=== PATIENT | male | born 1980 | race Caucasian/White ===

== ENCOUNTER 2017-08-09 06:27 | Emergency (ER) | payer OTHER, SELFPAY ==
[2017-08-09 06:31] VITALS: BP 132/93; PULSE 75; RESP 16; TEMP 36.6; O2SAT 99; BMI 32.6
[2017-08-09 06:57] LABS: Basophils % 0.4 % (0.1-2.0); Eosinophils # 0.3 K/mm3 (0.0-0.4); Eosinophils % 2.8 % (0.1-12.0); Hematocrit 49.2 % (42.0-52.0); Hemoglobin 16.6 g/dL (14.1-18.0); Lymphocytes # 2.4 K/mm3 (0.7-4.5); Lymphocytes % 26.6 K/mm3 (10-50); Mean Corpuscular HGB Conc 33.8 g/dL (31.8-35.4); Mean Corpuscular Hemoglobin 31.6 pg (27.0-31.2); Mean Corpuscular Volume 93.7 fl (80-94); Mean Platelet Volume 7.1 fl (7.4-10.4); Monocytes # 0.6 K/mm3 (0.1-1.0); Monocytes % 6.8 % (1.7-9.3); Neutrophils # 5.8 K/mm3 (1.8-7.8); Neutrophils % 63.4 % (37.0-80.0); Platelet Count 316 K/mm3 (142-424); Red Blood Count 5.25 M/mm3 (4.60-6.20); Red Cell Distribution Width 12.5 % (11.5-17.5); White Blood Count 9.1 K/mm3 (4.8-10.8)
[2017-08-09 07:00] LABS: Microscopic, Urine URINE MICROSCOPIC (MICROSCOPIC)
--- NOTE | 2017-08-09 07:10 | HMH.EDNVD ---
ED Disposition Clinical Impression: Gastroenteritis Disposition: Home, Self-Care Condition on Discharge: Good Instructions: DI for Diarrhea and Traveler's Diarrhea -- Adult Additional Instructions: fluids and see pcp for follow up Prescriptions: Ondansetron HCl [Zofran 4mg Tab] 4 mg PO TID #15 tab Referrals: Thom Harp [Primary Care Provider] - - Critical Care Critical Care Time: No Attestation: On 08/09/17, the high probability of a clinically significant, sudden or life threatening deterioration of the following system(s) required my full and direct attention, intervention and personal management. The time I documented below is in addition to time spent performing reported procedures but includes the following listed in this critical care notation. Medical Decision Making - Medical Records Medical records reviewed: Yes: I reviewed the patient's medical records. Vital Signs: 08/09/17 06:31 Temperature 97.9 F Temperature Source Oral Pulse Rate [Right Brachial] 75 Respiratory Rate 16 Blood Pressure [Right Arm] 132/93 Blood Pressure Mean [Right Arm] 106 Blood Pressure Source [Right Arm] Automatic Cuff Blood Pressure Position [Right Arm] Sitting 02 Sat by Pulse Oximetry 99 Oxygen Delivery Method Room Air - Lab Data Lab results reviewed: Yes: I reviewed the patient's lab results. Lab Results 08/09/17 06:45: WBC 9.1, RBC 5.25, Hgb 16.6, Hct 49.2, MCV 93.7, MCH 31.6 H, MCHC 33.8, RDW 12.5, Plt Count 316, MPV 7.1 L, Neut % (Auto) 63.4, Lymph % (Auto) 26.6, [place] % (Auto) 6.8, Eos % (Auto) 2.8, Baso % (Auto) 0.4, Neut # (Auto) 5.8, Lymph # (Auto) 2.4, [place] # (Auto) 0.6, Eos # (Auto) 0.3, Baso # (Auto) 0.0 08/09/17 06:45: Sodium 138, Potassium 4.0, Chloride 103, Carbon Dioxide 23, Anion Gap 16.0 H, BUN 18, Creatinine 1.01, Estimated Creat Clear 135, Estimated GFR 82, Est GFR ( Amer) 100, Glucose 122 H, Calcium 9.0, Total Bilirubin 0.4, AST 16, ALT 45, Alkaline Phosphatase 58, Total Protein 8.2, Albumin 4.2, Globulin 4.0 H, Albumin/Globulin Ratio 1.1, Amylase 35, Lipase 141 08/09/17 06:45: Influenza Type A Ag Negative, Influenza Type B Ag Negative 08/09/17 06:55: Urine Color Yellow, Urine Appearance Clear, Urine pH 6.0, Ur Specific [place] 1.025, Urine Protein Negative, Urine Glucose (UA) Negative, Urine Ketones Negative, Urine Blood Trace-i, Urine Nitrate Negative, Urine Bilirubin Negative, Urine Urobilinogen 0.2, Ur Leukocyte Esterase Negative, Urine RBC Occasional, Urine WBC None, Ur Squamous Epith Cells 3-5, Urine Bacteria 1+ Result diagrams: 08/09/17 06:45 08/09/17 06:45 Orders (Tests/Meds): ED MEDICATIONS Discontinued Medications Generic Name Dose Route Start Last Admin Trade Name Freq PRN Reason Stop Dose Admin Sodium Chloride 1,000 mls @ 999 mls/hr 08/09/17 07:00 08/09/17 06:56 Sod Chlor 0.9% 1000ml Bag IV 08/09/17 08:00 999 mls/hr .Q1H1M RAY Administration Ondansetron HCl 4 mg 08/09/17 06:53 08/09/17 06:55 Zofran 4mg/2ml Vial IV 08/09/17 06:54 4 mg ONCE ONE Administration - Jaison Inquiry Pt receiving controlled substance: No Nausea/Vomiting/Diarrhea HPI - General Chief complaint: Nausea/Vomiting/Diarrhea Stated complaint: Diarrhea,chills,vomiting Time Seen by Provider: 08/09/17 07:10 Mode of Arrival: Ambulatory Source of Information: Patient, Medical Record Limitations: No Limitations Description of Symptoms (Recalled from ER Triage Doc. by RN): N/V/D SINCE YESTERDAY - History of Present Illness HPI Narrative: achey with n/v with diarrhea and no rash over the last 24 hrs MD complaint: nausea, vomiting, diarrhea Onset (ago): day(s) Associated Abdominal Pain: No Severity: moderate Associated symptoms: myalgias - Related Data Previous Rx's Medication Instructions Recorded Ondansetron HCl [Zofran 4mg Tab] 4 mg PO TID #15 tab 08/09/17 Allergies Allergy/AdvReac Type Severity Reaction Status Date / Time erythromycin base Al
[2017-08-09 07:16] LABS: Appearance,Urine CLEAR (Clear); Bilirubin,Urine Negative (Negative); Blood, Urine TRACE-I (Negative); Color,Urine YELLOW (Yellow); Glucose,Urine (UA) Negative (Negative); Ketones,Urine Negative (Negative); Leukocyte Esterase,Urine Negative (Negative); Nitrate,Urine Negative (Negative); Protein,Urine Negative (Negative); Specific Gravity, Urine 1.025 (1.005-1.030); Urobilinogen,Urine 0.2 EU/dl (0.2)
--- NOTE | 2017-08-09 07:17 | ED_ITS ---
ED Disposition Clinical Impression: Gastroenteritis Disposition: Home, Self-Care Condition on Discharge: Good Instructions: DI for Diarrhea and Traveler's Diarrhea -- Adult Additional Instructions: fluids and see pcp for follow up Prescriptions: Ondansetron HCl [Zofran 4mg Tab] 4 mg PO TID #15 tab Referrals: Thom Harp [Primary Care Provider] - - Critical Care Critical Care Time: No Attestation: On 08/09/17, the high probability of a clinically significant, sudden or life threatening deterioration of the following system(s) required my full and direct attention, intervention and personal management. The time I documented below is in addition to time spent performing reported procedures but includes the following listed in this critical care notation. Medical Decision Making - Medical Records Medical records reviewed: Yes: I reviewed the patient's medical records. Vital Signs: 08/09/17 06:31 Temperature 97.9 F Temperature Source Oral Pulse Rate [Right Brachial] 75 Respiratory Rate 16 Blood Pressure [Right Arm] 132/93 Blood Pressure Mean [Right Arm] 106 Blood Pressure Source [Right Arm] Automatic Cuff Blood Pressure Position [Right Arm] Sitting 02 Sat by Pulse Oximetry 99 Oxygen Delivery Method Room Air - Lab Data Lab results reviewed: Yes: I reviewed the patient's lab results. Lab Results 08/09/17 06:45: WBC 9.1, RBC 5.25, Hgb 16.6, Hct 49.2, MCV 93.7, MCH 31.6 H, MCHC 33.8, RDW 12.5, Plt Count 316, MPV 7.1 L, Neut % (Auto) 63.4, Lymph % (Auto ) 26.6, [place] % (Auto) 6.8, Eos % (Auto) 2.8, Baso % (Auto) 0.4, Neut # (Auto) 5.8, Lymph # (Auto) 2.4, [place] # (Auto) 0.6, Eos # (Auto) 0.3, Baso # (Auto) 0.0 08/09/17 06:45: Sodium 138, Potassium 4.0, Chloride 103, Carbon Dioxide 23, Anion Gap 16.0 H, BUN 18, Creatinine 1.01, Estimated Creat Clear 135, Estimated GFR 82, Est GFR ( Amer) 100, Glucose 122 H, Calcium 9.0, Total Bilirubin 0.4, AST 16, ALT 45, Alkaline Phosphatase 58, Total Protein 8.2, Albumin 4.2, Globulin 4.0 H, Albumin/Globulin Ratio 1.1, Amylase 35, Lipase 141 08/09/17 06:45: Influenza Type A Ag Negative, Influenza Type B Ag Negative 08/09/17 06:55: Urine Color Yellow, Urine Appearance Clear, Urine pH 6.0, Ur Specific [place] 1.025, Urine Protein Negative, Urine Glucose (UA) Negative, Urine Ketones Negative, Urine Blood Trace-i, Urine Nitrate Negative, Urine Bilirubin Negative, Urine Urobilinogen 0.2, Ur Leukocyte Esterase Negative, Urine RBC Occasional, Urine WBC None, Ur Squamous Epith Cells 3-5, Urine Bacteria 1+ Result diagrams: 08/09/17 06:45 08/09/17 06:45 Orders (Tests/Meds): ED MEDICATIONS Discontinued Medications Generic Name Dose Route Start Last Admin Trade Name Freq PRN Reason Stop Dose Admin Sodium Chloride 1,000 mls @ 999 mls/hr 08/09/17 07:00 08/09/17 06:56 Sod Chlor 0.9% 1000ml Bag IV 08/09/17 08:00 999 mls/hr .Q1H1M RAY Administration Ondansetron HCl 4 mg 08/09/17 06:53 08/09/17 06:55 Zofran 4mg/2ml Vial IV 08/09/17 06:54 4 mg ONCE ONE Administration - Jaison Inquiry Pt receiving controlled substance: No Nausea/Vomiting/Diarrhea HPI - General Chief complaint: Nausea/Vomiting/Diarrhea Stated complaint: Diarrhea,chills,vomiting Time Seen by Provider: 08/09/17 07:10 Mode of Arrival: Ambulatory Source of Information: Patient, Medical Record Limitations: No Limitations
[2017-08-09 07:19] LABS: Alanine Aminotransferase 45 U/L (12-78); Albumin Level 4.2 gm/dL (3.4-5.0); Albumin/Globulin Ratio 1.1 (1.1-1.8); Alkaline Phosphatase 58 U/L (46-116); Amylase 35 U/L (25-125); Aspartate Amino Transferase 16 U/L (15-37); Bilirubin,Total 0.4 mg/dL (0.2-1.0); Blood Urea Nitrogen 18 mg/dL (7-18); Carbon Dioxide 23 mmol/L (21.0-32.0); Chloride 103 mmol/L (98-107); Creatinine Clearance Estimated 135 mL/min (0-300); Creatinine,Serum 1.01 mg/dL (0.70-1.30); Estimated Glomerular Filt Rate 82 ml/min (>60); GFR (African American) 100 ML/MIN (>60); Glucose 122 mg/dL (74-106); Lipase 141 u/L (73-393); Sodium 138 mmol/L (136-145); Total Protein,Serum 8.2 gm/dL (6.4-8.2)
--- NOTE | 2017-08-09 07:32 | PC.NURSE ---
Report given to VIVIANA Smith at this time
[2017-08-09 07:51] LABS: Bacteria,Urine 1+ /lpf; RBC,Urine Occasional #/hpf (0-3)
[2017-08-09 09:32] VITALS: BP 141/92; PULSE 68; RESP 18; TEMP 36.8; O2SAT 97
== END 2017-08-09 09:40 | disposition home or self-care (01) ==
PROVIDERS: Emergency Provider Emergency Medicine; Family Provider Pediatrics; PCP Pediatrics
DX: K52.9 Noninfective gastroenteritis and colitis, unspecified (principal); F17.210 Nicotine dependence, cigarettes, uncomplicated; Z88.1 Allergy status to other antibiotic agents
CPT/HCPCS: 36415; 80053; 81001; 82150; 83690; 85025; 87275; 87276; 96365; 96367; 96374; 96375; 99282; J2405

== ENCOUNTER 2018-12-05 19:55 | Emergency (ER) | payer OTHER, SELFPAY ==
[2018-12-05 20:08] VITALS: BP 137/92; PULSE 82; RESP 18; TEMP 37.2; O2SAT 98; BMI 31.1
--- NOTE | 2018-12-05 20:29 | HMH.EDUTC ---
[facility] [place]: Abscess Cellulitis Qualifiers: Site of cellulitis: extremity Site of cellulitis of extremity: lower extremity Laterality: left Qualified Code(s): L03.116 - Cellulitis of left lower limb Disposition: Home, Self-Care Condition on Discharge: Good Instructions: DI for Cellulitis -- Adult, Cellulitis, Cephalexin, Mupirocin, DI for Skin Abscess Additional Instructions: *Start antibiotic(s) immediately and be sure to take as ordered for the FULL length of time although you may be feeling better or start to see improvement in the next 24-48 hours *Monitor closely. Outlined redness so that you can monitor easier. Follow up immediately for new or worsening symptoms including but not limited to redness, swelling, streaking from site fever or chills. *Warm compress 15 minutes 3-4 times day *Never squeeze or pop these on your own. Seek immediate medical attention next time this occurs *Monitor Temp. Tylenol every 4 hours as needed and ibuprofen every 6 hours as needed (as long as your primary care doctor has told you that it is ok to take both. For fever, aches, pain. ER if no less that 101 despite Tylenol and ibuprofen Follow up with your family doctor/primary care physician in the next 48-72 hours if no improvement to make sure that medication is working Return if needed Prescriptions: Sulfamethoxazole/Trimethoprim [Bactrim DS tablet] 1 each PO BID 10 Days #20 tab cephALEXin [Keflex 500mg Cap] 500 mg PO Q6H 10 Days #40 cap Referrals: Thom Harp [Primary Care Provider] - As needed Forms: Work/School Release Time of Disposition: 20:38 Medical Decision Making - Jaison Inquiry Pt receiving controlled substance: No Jaison was queried for this patient: No Vital Signs: 12/05/18 20:08 Temperature 98.9 F Temperature Source Oral Pulse Rate [Right Radial] 82 Respiratory Rate 18 Blood Pressure [Right Arm] 137/92 H Blood Pressure Mean [Right Arm] 107 Blood Pressure Source [Right Arm] Automatic Cuff Blood Pressure Position [Right Arm] Sitting 02 Sat by Pulse Oximetry 98 Oxygen Delivery Method Room Air [facility] [place] - General Stated complaint: Spot on left leg Time Seen by Provider: 12/05/18 20:15 Mode of Arrival: Ambulatory Source of Information: Patient Limitations: No Limitations Description of Symptoms (Recalled from Triage Doc. by RN): C/O RED, WARM AREA ON HIS LT THIGH HEENT Symptoms (Recalled from RN notes): No Resp Symptoms (Recalled from RN notes): No Skin Symptoms (Recalled from RN notes): Yes (RED, WARM AREA ON LT THIGH) MS Symptoms (Recalled from RN notes): No Functional Status (Recalled from RN notes): N/A - History of Present Illness Provider Complaint: Patient states that he noticed a red area on his left thigh area about 2 days ago State that it has continued to get worse State that he soaked last night in the tub and one of the areas appeared to open but didn't drain State that today he noticed that the redness around the raised red spot was getting bigger and someone told him that he may have cellulitis - Related Data Previous Rx's Medication Instructions Recorded Sulfamethoxazole/Trimethoprim 1 each PO BID 10 Days #20 tab 12/05/18 [Bactrim DS tablet] cephALEXin [Keflex 500mg Cap] 500 mg PO Q6H 10 Days #40 cap 12/05/18 Allergies Allergy/AdvReac Type Severity Reaction Status Date / Time erythromycin base Allergy Unknown Verified 08/09/17 06:36 [ERYTHROMYCIN BASE] - Worker's Comp Is this a Worker's Comp case?: No [facility] History - Hepatitis A Screen Drug use history?: No High risk sexual behaviors?: No History of sexually transmitted infection?: No Currently employed?: No Childcare worker?: No Do you have indoor plumbing?: Yes Do you have electricity?: Yes Attestation statement:: This patient has been screened for Hepatitis A risk factors. I have reviewed the patient's past medical history: Yes - Social History Smoking Status: Current e
--- NOTE | 2018-12-05 20:37 | ED_ITS ---
[facility] [place] Clinical Impression: Abscess Cellulitis Qualifiers: Site of cellulitis: extremity Site of cellulitis of extremity: lower extremity Laterality: left Qualified Code(s): L03.116 - Cellulitis of left lower limb Disposition: Home, Self-Care Condition on Discharge: Good Instructions: DI for Cellulitis -- Adult, Cellulitis, Cephalexin, Mupirocin, DI for Skin Abscess Additional Instructions: *Start antibiotic(s) immediately and be sure to take as ordered for the FULL length of time although you may be feeling better or start to see improvement in the next 24-48 hours *Monitor closely. Outlined redness so that you can monitor easier. Follow up immediately for new or worsening symptoms including but not limited to redness, swelling, streaking from site fever or chills. *Warm compress 15 minutes 3-4 times day *Never squeeze or pop these on your own. Seek immediate medical attention next time this occurs *Monitor Temp. Tylenol every 4 hours as needed and ibuprofen every 6 hours as needed (as long as your primary care doctor has told you that it is ok to take both. For fever, aches, pain. ER if no less that 101 despite Tylenol and ibuprofen Follow up with your family doctor/primary care physician in the next 48-72 hours if no improvement to make sure that medication is working Return if needed Prescriptions: Sulfamethoxazole/Trimethoprim [Bactrim DS tablet] 1 each PO BID 10 Days #20 tab cephALEXin [Keflex 500mg Cap] 500 mg PO Q6H 10 Days #40 cap Referrals: Thom Harp [Primary Care Provider] - As needed Forms: Work/School Release Time of Disposition: 20:38 Medical Decision Making - Jaison Inquiry Pt receiving controlled substance: No Jaison was queried for this patient: No Vital Signs: 12/05/18 20:08 Temperature 98.9 F Temperature Source Oral Pulse Rate [Right Radial] 82 Respiratory Rate 18 Blood Pressure [Right Arm] 137/92 H Blood Pressure Mean [Right Arm] 107 Blood Pressure Source [Right Arm] Automatic Cuff Blood Pressure Position [Right Arm] Sitting 02 Sat by Pulse Oximetry 98 Oxygen Delivery Method Room Air [facility] [place] - General Stated complaint: Spot on left leg Time Seen by Provider: 12/05/18 20:15 Mode of Arrival: Ambulatory Source of Information: Patient Limitations: No Limitations Description of Symptoms (Recalled from Triage Doc. by RN): C/O RED, WARM AREA ON HIS LT THIGH HEENT Symptoms (Recalled from RN notes): No Resp Symptoms (Recalled from RN notes): No Skin Symptoms (Recalled from RN notes): Yes (RED, WARM AREA ON LT THIGH) MS Symptoms (Recalled from RN notes): No Functional Status (Recalled from RN notes): N/A - History of Present Illness Provider Complaint: Patient states that he noticed a red area on his left thigh area about 2 days ago State that it has continued to get worse State that he soaked last night in the tub and one of the areas appeared to open but didn't drain State that today he noticed that the redness around the raised red spot was getting bigger and someone told him that he may have cellulitis - Related Data Previous Rx's Medication Instructions Recorded Sulfamethoxazole/Trimethoprim 1 each PO BID 10 Days #20 tab 12/05/18 [Bactrim DS tablet] cephALEXin [Keflex 500mg Cap] 500 mg PO Q6H 10 Days #40 cap 12/05/18 Allergies Allergy/AdvReac Ty
[2018-12-05 20:41] VITALS: BP 137/92; PULSE 82; RESP 18; TEMP 37.2; O2SAT 98
== END 2018-12-05 20:42 | disposition home or self-care (01) ==
PROVIDERS: Emergency Provider Nurse Practitioner; PCP Pediatrics
DX: L03.116 Cellulitis of left lower limb (principal); F17.210 Nicotine dependence, cigarettes, uncomplicated
CPT/HCPCS: 99201

== ENCOUNTER 2021-07-28 08:15 | Emergency (ER) | payer OTHER, SELFPAY ==
--- NOTE | 2021-07-28 08:09 | ECG_ITS ---
APPROVED REPORT Exam: Resting ECG HR:70 bpm ECG Measurements Heart Rate 70 AXES SD 150 P 37 QRSd 89 QRS 133 QT 367 T 17 QTc 388 Conclusion SINUS RHYTHM RIGHT VENTRICULAR HYPERTROPHY [SOME/ALL OF: PROMINENT R IN V1, LATE TRANSITION, RAD, MONSE, SSS] ABNORMAL ECG UNCONFIRMED REPORT Electronically signed by : Kyle Alfaro MD 07/29/2021 19:01:29
[2021-07-28 08:16] VITALS: PULSE 74; RESP 20; TEMP 36.4; O2SAT 100; BMI 72.5
[2021-07-28 08:32] VITALS: BP 116/83; BP 126/89; PULSE 59; PULSE 61; RESP 18; O2SAT 95; O2SAT 97
--- NOTE | 2021-07-28 08:32 | XR_ITS ---
FINAL REPORT CLINICAL HISTORY: chest pain, smoker COMPARISON: 12/21/2017 FINDINGS: The heart size is normal. The mediastinum is within normal limits. There is no acute cardiopulmonary process. There is no pleural effusion. There is no pneumothorax. The bony thorax is intact. IMPRESSION: No acute cardiopulmonary process. Reviewed, Interpreted and Dictated by Neptali Flores III, MD Transcribed by Ge Soria Authenticated by Neptali Flores III, MD on 07/28/2021 09:20:26 AM [facility]
[2021-07-28 08:45] LABS: Basophils # 0.2 K/mm3 (0-0.2); Basophils % 1.7 % (0.1-2.0); Eosinophils # 0.3 K/mm3 (0.0-0.4); Eosinophils % 2.4 % (0.1-12.0); Hematocrit 55.6 % (42.0-52.0); Lymphocytes # 2.5 K/mm3 (0.7-4.5); Lymphocytes % 23.9 % (10-50); Mean Corpuscular HGB Conc 32.6 g/dL (31.8-35.4); Mean Corpuscular Hemoglobin 32.7 pg (27.0-31.2); Mean Corpuscular Volume 100.4 fl (80-94); Mean Platelet Volume 7.6 fl (7.4-10.4); Monocytes # 0.5 K/mm3 (0.1-1.0); Monocytes % 5.2 % (1.7-9.3); Neutrophils % 66.8 % (37.0-80.0); Platelet Count 355 K/mm3 (142-424); Red Blood Count 5.53 M/mm3 (4.60-6.20); Red Cell Distribution Width 13.2 % (11.5-17.5); White Blood Count 10.4 K/mm3 (4.8-10.8)
--- NOTE | 2021-07-28 08:45 | HMH.EDGENADL ---
ED Disposition Clinical Impression: Atypical chest pain Disposition: Home, Self-Care Condition on Discharge: Good Instructions: DI for Atypical Chest Pain Additional Instructions: follow up Dr Barnhart call for appt, return for worse Referrals: Zamzam Parker [Primary Care Provider] - - Critical Care Critical Care Time: No Attestation: On 07/28/21, the high probability of a clinically significant, sudden or life threatening deterioration of the following system(s) required my full and direct attention, intervention and personal management. The time I documented below is in addition to time spent performing reported procedures but includes the following listed in this critical care notation. Medical Decision Making - Medical Records Medical records reviewed: Yes: I reviewed the patient's medical records. - Jaison Inquiry Pt receiving controlled substance: No Vital Signs: 07/28/21 08:16 07/28/21 08:32 07/28/21 09:00 Temperature 97.5 F L Temperature Source Oral Pulse Rate 59 L 61 Pulse Rate [Right] 74 Respiratory Rate 20 18 18 Blood Pressure 126/89 132/81 Blood Pressure Mean 87 Blood Pressure Source Automatic Cuff Blood Pressure Source [140/93] Manual Cuff/ Doppler Blood Pressure Position Sitting Blood Pressure Position [140/93] Supine 02 Sat by Pulse Oximetry 100 97 96 Oxygen Delivery Method Room Air Room Air - Lab Data Lab Results 07/28/21 08:17: WBC 10.4, RBC 5.53, Hgb 18.1 H, Hct 55.6 H, MCV 100.4 H, MCH 32.7 H, MCHC 32.6, RDW 13.2, Plt Count 355, MPV 7.6, Neut % (Auto) 66.8, Lymph % (Auto) 23.9, [place] % (Auto) 5.2, Eos % (Auto) 2.4, Baso % (Auto) 1.7, Neut # (Auto) 7.0, Lymph # (Auto) 2.5, [place] # (Auto) 0.5, Eos # (Auto) 0.3, Baso # (Auto) 0.2 07/28/21 08:17: Sodium 136, Potassium 4.7, Chloride 102, Carbon Dioxide 26, Anion Gap 12.7, BUN 15, Creatinine 0.90, Estimated Creat Clear 99, Estimated GFR 92, Est GFR ( Amer) 111, Glucose 106 H, Calcium 9.7, Total Bilirubin 0.6, AST 33, ALT 26, Alkaline Phosphatase 56, Troponin I < 0.01, Total Protein 8.6 H, Albumin 4.9, Globulin 3.7 H, Albumin/Globulin Ratio 1.3 07/28/21 10:47: Troponin I < 0.01 Result diagrams: 07/28/21 08:17 07/28/21 08:17 Orders (Tests/Meds): ED MEDICATIONS Generic Name Dose Route Start Last Admin Trade Name Freq PRN Reason Stop Dose Admin Sodium Chloride 10 ml 07/28/21 08:32 Sodium Chloride 0.9% 10ml Flush Syringe IV 08/27/21 08:31 NEEDED PRN Maintain IV Site Discontinued Medications Generic Name Dose Route Start Last Admin Trade Name Freq PRN Reason Stop Dose Admin Aspirin 324 mg 07/28/21 08:36 07/28/21 08:42 Aspirin 81mg Chewable Tablet PO 07/28/21 08:37 324 mg ONCE ONE Administration Ketorolac Tromethamine 30 mg 07/28/21 09:28 07/28/21 09:33 Ketorolac 30mg/Ml Vial IV 07/28/21 09:29 30 mg ONCE ONE Administration ORDERS Category Date Time Status Troponin I Q3H Lab 07/28/21 11:45 Ordered Troponin I Stat Lab 07/28/21 10:47 Ordered Medical Decision Narrative: ekg by me nsr, narrow qrs, no st elev reeval vss appears well feels betetr, ok with plan to f/u cardiology General Adult HPI - General Chief complaint: Chest Pain Stated complaint: chest pain Time Seen by Provider: 07/28/21 08:45 Mode of Arrival: Ambulatory Limitations: No Limitations Description of Symptoms (Recalled from ER Triage Doc. by RN): pt presents to ED c/o pain that started yesterday. pt states that he is currently under a lot of stress. 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
[2021-07-28 08:50] LABS: Chloride 102 mmol/L (98-107); Sodium 136 mmol/L (136-145)
[2021-07-28 08:51] LABS: Potassium 4.7 mmoL/L (3.5-5.1)
[2021-07-28 08:53] LABS: Alanine Aminotransferase 26 U/L (12-78); Alkaline Phosphatase 56 U/L (38-126); Aspartate Amino Transferase 33 U/L (17-59); Bilirubin,Total 0.6 mg/dl (0.2-1.3); Blood Urea Nitrogen 15 mg/dl (9-20); Creatinine Clearance Estimated 99 mL/min (50-200); Estimated Glomerular Filt Rate 92 ml/min (>60); GFR (African American) 111 ML/MIN (>60)
[2021-07-28 08:54] LABS: Albumin Level 4.9 g/dl (3.5-5.0); Albumin/Globulin Ratio 1.3 (1.1-1.8); Anion Gap 12.7 mEq/L (5-15); Calcium 9.7 mg/dl (8.4-10.2); Carbon Dioxide 26 mmol/L (22.0-30.0); Globulin 3.7 g/dL (1.3-3.2); Glucose 106 mg/dl (74-100); Total Protein,Serum 8.6 g/dl (6.3-8.2)
[2021-07-28 09:00] VITALS: BP 132/81; PULSE 61; RESP 18; O2SAT 96
[2021-07-28 09:10] LABS: Troponin I < 0.01 ng/ml (0.00-0.034)
--- NOTE | 2021-07-28 09:33 | PC.NURSE ---
DR EDGE WANTS 2 HR [facility] NOTFIED
[2021-07-28 10:00] LABS: Hemoglobin 18.1 g/dL (14.1-18.0)
[2021-07-28 11:32] LABS: Troponin I < 0.01 ng/ml (0.00-0.034)
[2021-07-28 12:27] VITALS: BP 117/82; PULSE 66; RESP 16; TEMP 36.6; O2SAT 98
== END 2021-07-28 12:30 | disposition home or self-care (01) ==
PROVIDERS: Emergency Provider Emergency Medicine; PCP Internal Medicine Rheumatology
DX: R07.89 Other chest pain (principal); F17.210 Nicotine dependence, cigarettes, uncomplicated
CPT/HCPCS: 36415; 71045; 80053; 84484; 85025; 93005; 96375; 99284

== ENCOUNTER 2021-10-13 09:01 | Emergency (ER) | payer OTHER, SELFPAY ==
--- NOTE | 2021-10-13 09:05 | XR_ITS ---
FINAL REPORT CLINICAL HISTORY: pain that radiates into neck and down Rt arm for 1 day FINDINGS: 2 views of the right clavicle were obtained. There is no acute fracture. The joint spaces are intact. There is no soft tissue abnormality. IMPRESSION: No acute process. Reviewed, Interpreted and Dictated by Tommy Jimenez MD Transcribed by Ge Soria Authenticated by Tommy Jimenez MD on 10/13/2021 09:40:44 AM [facility]
[2021-10-13 09:30] VITALS: BP 169/111; PULSE 68; RESP 18; TEMP 37; O2SAT 99; BMI 31.9
--- NOTE | 2021-10-13 10:18 | HMH.EDUTC ---
[facility] [place] Disposition Clinical Impression: Separation of muscle (nontraumatic), right shoulder Right shoulder pain Qualifiers: Chronicity: acute Qualified Code(s): M25.511 - Pain in right shoulder Disposition: Home, Self-Care Condition on Discharge: Good Additional Instructions: Rest the extremity, apply ice for 15 minutes as tolerated three or four times per day, Wear the arm sling to rest your shoulder for the next 3 days. Take ibuprofen for pain. I sent in a prescription to your pharmacy. Follow up with Dr. Arreola (orthopedics). I put in a referral but you need to call his office and schedule an appointment. Follow up with your regular doctor. GO TO THE ER FOR ANY WORSENING SYMPTOMS Don't lift over 10 pounds with your right arm for the next 7 days. Prescriptions: Ibuprofen [Ibuprofen 800mg Tablet] 800 mg PO Q8HP PRN #30 tab PRN Reason: Moderate Pain Transmission Status: Received by [facility] Referrals: Thom Harp [Primary Care Provider] - Lewis Arreola MD [Staff Physician] - Forms: Work/School Release Time of Disposition: 10:22 Medical Decision Making - Medical Records Medical records reviewed: No: I reviewed the patient's medical records. - Jaison Inquiry Pt receiving controlled substance: No Vital Signs: 10/13/21 09:30 10/13/21 10:31 Temperature 98.6 F 98.6 F Temperature Source Oral Pulse Rate 68 Pulse Rate [Left] 68 Respiratory Rate 18 18 Blood Pressure 169/111 H Blood Pressure [Right Arm] 169/111 H Blood Pressure Mean [Right Arm] 130 02 Sat by Pulse Oximetry 99 [facility] [place] HPI - General Stated complaint: neck pain, unknown origin Time Seen by Provider: 10/13/21 09:30 Mode of Arrival: Ambulatory Source of Information: Patient Limitations: No Limitations Description of Symptoms (Recalled from Triage Doc. by RN): pt c/o R clavicle pain and states there is a knot on his clavicle. pt states the pain radiates up the front of his neck. 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 HEENT Symptoms (Recalled from RN notes): No Resp Symptoms (Recalled from RN notes): No Skin Symptoms (Recalled from RN notes): No MS Symptoms (Recalled from RN notes): Yes Functional Status (Recalled from RN notes): wnl - History of Present Illness Provider Complaint: He c/o right clavicle pain since lifting something heavy yesterday. He denies any other injury. - Related Data Home Medications Medication Instructions Recorded Confirmed albuterol sulfate 90 mcg/actuation INHALATION 07/21/19 aerosol inhaler Previous Rx's Medication Instructions Recorded ofloxacin 0.3 % eye drops See Rx Instructions OPHTHALMIC 07/21/19 .COMPLEX #5 ml Ibuprofen [Ibuprofen 800mg 800 mg PO Q8HP PRN #30 tab 10/13/21 Tablet] Allergies Allergy/AdvReac Type Severity Reaction Status Date / Time erythromycin base Allergy Unknown Verified 07/21/19 12:37 [ERYTHROMYCIN BASE] - Worker's Comp Is this a Worker's Comp case?: No [facility] History - Hepatitis A Screen Drug use history?: No High risk sexual behaviors?: No History of sexually transmitted infection?: No Currently employed?: No Childcare worker?: No Do you have indoor plumbing?: Yes Do you have electricity?: Yes Attestation statement:: This patient has been screened for Hepatitis A risk factors. I have reviewed the patient's past medical history: Yes Laterality Cases: Right: Carpal Tunnel Release Other Surgeries: Yes: Appendectomy Amputation: No Fractures: No - Social History Smoking Status: Current every day smoker Tobacco Type: cigarettes # Packs/Day (cigarettes): 1 Alcohol Intake: never Substance Use Type: denies use Occupational Status: employed Housing: house Household Members: family Family Hx:: No significant family history ROS Obtained: Yes All systems reviewed & no additional complaints - Constitutional Constituti
[2021-10-13 10:31] VITALS: BP 169/111; PULSE 68; RESP 18; TEMP 37
== END 2021-10-13 10:37 | disposition home or self-care (01) ==
PROVIDERS: Emergency Provider Nurse Practitioner Family; PCP Pediatrics
DX: M25.511 Pain in right shoulder (principal); M54.2 Cervicalgia; F17.210 Nicotine dependence, cigarettes, uncomplicated; Z79.1 Long term (current) use of non-steroidal anti-inflammatories (NSAID); Z79.51 Long term (current) use of inhaled steroids; Z88.0 Allergy status to penicillin; Z88.1 Allergy status to other antibiotic agents; Z88.3 Allergy status to other anti-infective agents
CPT/HCPCS: 73000; 99213; G0463

== ENCOUNTER → 2021-10-29 14:02 | Outpatient (CLI) | payer OTHER, SELFPAY ==
--- NOTE | 2021-10-29 14:02 | CT_ITS ---
FINAL REPORT CLINICAL HISTORY: clavicle/shoulder pain, pt feels like sternoclavicular joint is not align. clavicle feels deeper in chest than normal. no trauma. states it feels it's pushing on neck too. FINDINGS: CT CHEST W/O CONTRAST Axial images were obtained from the lung apex to the mid abdomen by computed tomography. Coronal reformatted images were obtained. 3D images were also obtained. This study was performed with techniques to keep radiation doses as low as reasonably achievable, (ALARA). Individualized dose reduction techniques using automated exposure control or adjustment of mA and/or kV according to the patient's size were employed. There is no axillary adenopathy. There is no hilar or mediastinal adenopathy. Heart size is normal. There is no pericardial or pleural effusion. Limited images of the upper abdomen demonstrates a 26 mm cystic mass in the right kidney which is likely a cyst. There is a less than 3 mm non obstructing right renal stone. On the lung windows images, there is an 8 mm nodule in the left major fissure which is likely an intra fissural lymph node. There is calcified granuloma in the right lung base. On the bone window images, the sternoclavicular and acromioclavicular joints appear intact. No focal bony abnormality is identified. IMPRESSION: No focal bony abnormality is identified. 8 mm nodule in the left major fissure, likely an intra fissural lymph node. Nonobstructing right renal stone and a 26 mm right renal cystic mass, likely a cyst. Reviewed, Interpreted and Dictated by Neptali Flores III, MD Transcribed by Arely Jordan Authenticated by Neptali Flores III, MD on 10/29/2021 03:26:08 PM [facility]
== END ==
PROVIDERS: PCP Pediatrics; Visit Provider Orthopaedic Surgery
DX: M25.511 Pain in right shoulder (principal)
CPT/HCPCS: 71250

== ENCOUNTER 2022-09-03 16:57 | Emergency (ER) | payer OTHER, SELFPAY ==
[2022-09-03 17:05] VITALS: BP 145/100; PULSE 68; RESP 20; TEMP 37.1; O2SAT 97; BMI 32.6
--- NOTE | 2022-09-03 17:24 | EXP.UTC ---
Discharge Plan Disposition Patient Disposition: Home, Self-Care Condition: Good Prescriptions Prescriptions: New sulfamethoxazole-trimethoprim [Bactrim DS] 800-160 mg tablet 1 tab PO BID Qty: 20 0RF mupirocin 2 % ointment 1 applic topical BID 7 Days Qty: 15 0RF No Action ibuprofen 800 MG tablet 800 mg PO Q8HP PRN (Reason: Moderate Pain) Qty: 30 0RF Referrals Follow up/Referrals: Provider,Referral, MD [Primary Care Provider] - See instructions Activity Restrictions/Add. Instructions Additional Instructions/Restrictions: keep area clean and dry antibiotics as ordered follow up with pcp if symptoms worsen or no improvement return or be seen in ed Clinical Impressions Clinical Impression: Abscess Instructions Patient Instructions: Boil Discharge ED Provider: Rupali ([facility])[place] [facility] [place] General Stated complaint: Right side redness,swollen Mode of Arrival: Ambulatory Source of Information: Patient Limitations: No Limitations Time Seen by Provider: 09/03/22 17:24 Description of Symptoms (Recalled from Triage Doc. by RN): PATIENT C/O RED SPOT TO RIGHT LEG HEENT Symptoms (Recalled from RN notes): No Resp Symptoms (Recalled from RN notes): No Skin Symptoms (Recalled from RN notes): Yes MS Symptoms (Recalled from RN notes): No Functional Status (Recalled from RN notes): WNL History of Present Illness Provider Complaint: 42 yr old male presents for a abscess to rt upper leg. pt states he dug a piece of metal out of it after using a grounder. Related Data Home Medications Medication Instructions Recorded Confirmed albuterol sulfate 90 mcg/actuation inhalation 07/21/19 aerosol inhaler Previous Rx's Medication Instructions Recorded ibuprofen 800 mg tablet 800 mg PO Q8HP PRN Moderate Pain 10/13/21 #30 tabs mupirocin 2 % topical ointment 1 applic topical BID 7 days #15 09/03/22 grams sulfamethoxazole 800 1 tab PO BID #20 tabs 09/03/22 mg-trimethoprim 160 mg tablet (Bactrim DS) Allergies Allergy/AdvReac Type Severity Reaction Status Date / Time erythromycin base Allergy Unknown Verified 10/26/21 14:57 [ERYTHROMYCIN BASE] Worker's Comp Is this a Worker's Comp case?: No [facility] Disclaimer: The information contained in this section may have been updated after the patient was seen, as this information can be updated by other users. Social History , [employer]) Smoking Status: Current every day smoker tobacco type: cigarettes packs per day: 1 alcohol intake: never substance use type: denies use current occupational status: employed Travel in the last 8 weeks: None household members: family housing: house ROS Obtained: Yes All systems reviewed & no additional complaints except as documented Constitutional Constitutional: Reports system reviewed and no additional complaints, except as documented and Reports as per HPI Eyes Eyes: Reports system reviewed and no additional complaints, except as documented ENT Ears, Nose, Mouth, and Throat: Reports system reviewed and no additional complaints, except as documented Cardiovascular Cardiovascular: Reports system reviewed and no additional complaints, except as documented Respiratory Respiratory: Reports system reviewed and no additional complaints, except as documented Gastrointestinal Gastrointestingal: Reports system reviewed and no additional complaints, except as documented Musculoskeletal Musculoskeletal: Reports system reviewed and no additional complaints, except as documented Integumentary/Breasts Skin/Breast: Reports system reviewed and no additional complaints, except as documented, Reports as per HPI and Reports wounds Neurologic Neurologic: Reports system reviewed and no additional complaints, except as documented Endocrine Endocrine: Reports system reviewed and no additional complaints, except as documented Hematologic/Lymphatic Henatologic/
[2022-09-03 17:37] VITALS: BP 145/100; PULSE 68; RESP 20; TEMP 37.1; O2SAT 97
== END 2022-09-03 17:40 | disposition home or self-care (01) ==
PROVIDERS: Emergency Provider Nurse Practitioner Family
DX: L02.415 Cutaneous abscess of right lower limb (principal)
CPT/HCPCS: 99212; 99214; G0463

== ENCOUNTER → 2022-10-17 23:23 | Outpatient (CLI) | payer OTHER, SELFPAY ==
[2022-10-17 19:43] LABS: Chloride 99 mmol/L (98-107); Potassium 4.4 mmoL/L (3.5-5.1); Sodium 139 mmol/L (136-145)
[2022-10-17 19:45] LABS: Hemoglobin A1C 5.7 % (4.0-6.0)
[2022-10-17 19:46] LABS: Alanine Aminotransferase 23 U/L (12-78); Albumin Level 4.4 g/dl (3.5-5.0); Albumin/Globulin Ratio 1.5 (1.1-1.8); Alkaline Phosphatase 61 U/L (38-126); Anion Gap 18.4 mEq/L (5-15); Aspartate Amino Transferase 25 U/L (17-59); Bilirubin,Total 0.5 mg/dl (0.2-1.3); Blood Urea Nitrogen 14 mg/dl (9-20); Calcium 9.5 mg/dl (8.4-10.2); Carbon Dioxide 26 mmol/L (22.0-30.0); Estimated Glomerular Filt Rate 92 ml/min (>60); GFR (African American) 111 ML/MIN (>60); Globulin 2.9 g/dL (1.3-3.2); Glucose 95 mg/dl (74-100); Total Protein,Serum 7.3 g/dl (6.3-8.2)
[2022-10-17 20:16] LABS: Thyroid Stimulating Hormone 1.21 uIU/mL (0.465-4.68)
== END ==
PROVIDERS: PCP Nurse Practitioner; Visit Provider Nurse Practitioner
DX: B35.4 Tinea corporis (principal); B35.1 Tinea unguium
CPT/HCPCS: 80053; 83036; 84443

== ENCOUNTER → 2022-12-23 15:22 | Outpatient (CLI) | payer OTHER, SELFPAY ==
--- NOTE | 2022-12-23 15:22 | CT_ITS ---
FINAL REPORT TECHNIQUE: Axial CT images were performed from the lung apices through the upper abdomen. Coronal reformats were submitted. This study was performed with techniques to keep radiation doses as low as reasonably achievable (ALARA). Individualized dose reduction techniques using automated exposure control or adjustment of mA and/or kV according to the patient's size were employed. CLINICAL HISTORY: Atypical chest pain COMPARISON: 10/29/2021 FINDINGS: There is no axillary adenopathy. There is no hilar or mediastinal mass or adenopathy. Heart size is normal. There is no pericardial or pleural effusion. There is an 8 mm nodule which was present on the prior CT exam in the left major fissure, measures 9 mm on today's exam, and is visually stable. No new pulmonary nodules are identified. There is mild emphysema noted. There is a small 3 mm right renal stone, stable. There is a 26 mm right renal density, unchanged from the prior exam as well, favor renal cyst. IMPRESSION: No significant change identified since the prior CT of October 2021. The 8 mm nodule present on the prior CT examination in the left major fissure is visually stable. Reviewed, Interpreted and Dictated by Neptali Flores III, MD Transcribed by Emerald Uriarte Authenticated and . [facility]
== END ==
PROVIDERS: PCP Family Medicine; Visit Provider Family Medicine
DX: R07.89 Other chest pain (principal); I10 Essential (primary) hypertension
CPT/HCPCS: 71250

== ENCOUNTER 2023-05-01 04:31 | Emergency (ER) | payer OTHER, SELFPAY ==
[2023-05-01 04:32] VITALS: BP 147/95; PULSE 61; RESP 18; TEMP 36.7; O2SAT 99; BMI 30.4
--- NOTE | 2023-05-01 04:46 | HMH.EDGENADL ---
Discharge Plan Disposition Patient Disposition: Home, Self-Care Chief Complaint: Ear Prescriptions Prescriptions: New amoxicillin-pot clavulanate 875-125 mg tablet 1 tab PO BID 7 Days Qty: 14 0RF No Action albuterol sulfate 90 mcg/actuation HFA aerosol inhaler INHALATION losartan 100 mg tablet 100 mg PO DAILY Qty: 90 3RF amlodipine [Norvasc] 10 mg tablet 10 mg PO DAILY Qty: 90 3RF naproxen [Naprosyn] 500 mg tablet 500 mg PO BID Qty: 60 2RF nystatin 100,000 unit/gram cream 1 applic topical QID Qty: 30 3RF clobetasol 0.05 % cream 1 applic topical BID Qty: 60 1RF terbinafine HCl 250 mg tablet 250 mg PO DAILY Qty: 28 1RF clotrimazole 1 % cream 1 applic topical BID 14 Days Qty: 45 1RF oxycodone-acetaminophen [Percocet] 5-325 mg tablet 1 tab PO DAILY PRN (Reason: pain) Qty: 30 0RF terbinafine HCl 250 mg tablet 250 mg PO DAILY 42 Days Qty: 42 0RF nicotine 21 mg/24 hr patch 24 hour 1 patch transdermal DAILY Qty: 28 10RF bupropion HCl [Wellbutrin XL] 150 mg tablet extended release 24 hr 150 mg PO DAILY Qty: 90 3RF tramadol 50 mg tablet 50 mg PO BID PRN (Reason: pain) Qty: 20 0RF Rx Instructions: for moderate pain methylprednisolone [Medrol (Balaji)] 4 mg tablets,dose pack See Rx Instructions PO PER PKG DIR Qty: 21 0RF Rx Instructions: PO PER PKG DIR cefdinir 300 mg capsule 300 mg PO BID 10 Days Qty: 20 0RF Referrals Follow up/Referrals: Yunior Ramirez MD [Primary Care Provider] - See instructions Activity Restrictions/Add. Instructions Additional Instructions/Restrictions: Please take Augmentin as prescribed for your infection. Please use Ciprodex drops, 4 drops in affected ear, 2 times a day for 7 days. Please follow-up with your primary care provider. Please return to the emergency department if you develop any new or worsening symptoms or become concerned for your health. Clinical Impressions Clinical Impression: Otitis externa Qualifiers: Otitis externa type: other infective Chronicity: acute Laterality: right Qualified Code(s): H60.391 - Other infective otitis externa, right ear Otitis media Qualifiers: Otitis media type: suppurative Chronicity: acute Laterality: right Recurrence: non-recurrent Spontaneous tympanic membrane rupture: without spontaneous rupture Qualified Code(s): H66.001 - Acute suppurative otitis media without spontaneous rupture of ear drum, right ear Discharge ED Provider: Thomas Sung General Adult HPI General Chief complaint: Ear Stated complaint: right ear pain Time Seen by Provider: 05/01/23 04:33 Mode of Arrival: Ambulatory Source of Information: Patient Limitations: No Limitations Description of Symptoms (Recalled from ER Triage Doc. by RN): Pt presents with right ear pain radiating into his jaw taht started a few days ago. Denies any other symptoms at this time. History of Present Illness HPI narrative: 43-year-old male, previously healthy, presents with worsening right ear pain and decreased hearing for the last 3 days. He reports pain is very severe. He reports that he has never had an ear infection before. He has been using some drops [id number] but does not feel like it is helping. Denies any fevers chills or systemic symptoms. Related Data Home Medications Medication Instructions Recorded Confirmed albuterol sulfate 90 mcg/actuation inhalation 07/21/19 04/27/23 aerosol inhaler Previous Rx's Medication Instructions Recorded clotrimazole 1 % topical cream 1 applic topical BID 2 weeks #45 10/17/22 grams terbinafine HCl 250 mg tablet 250 mg PO DAILY #28 tabs 10/17/22 losartan 100 mg tablet 100 mg PO DAILY #90 tabs 11/28/22 amlodipine 10 mg tablet (Norvasc) 10 mg PO DAILY #90 tabs 12/12/22 bupropion HCl 150 mg 24 hr tablet, 150 mg PO DAILY #90 tabs 12/25/22 extended release (Wellbutrin XL) nicotine 21 mg/24 hr daily 1 patch transdermal DAILY #28 ea
[2023-05-01 04:53] VITALS: BP 120/77; PULSE 62; RESP 18; TEMP 36.7; O2SAT 98
== END 2023-05-01 05:02 | disposition home or self-care (01) ==
PROVIDERS: Emergency Provider Emergency Medicine; PCP Family Medicine
DX: H60.391 Other infective otitis externa, right ear (principal); H92.01 Otalgia, right ear; Z87.891 Personal history of nicotine dependence
CPT/HCPCS: 99283

== ENCOUNTER 2023-06-28 17:52 | Outpatient (CLI) | payer OTHER, SELFPAY ==
[2023-06-28 22:26] LABS: Amphetamine/Metha Screen,Urine Negative ng/ml (<1000); Barbiturates Screen,Urine Negative ng/ml (<200); Benzodiazepines Screen,Urine Negative ng/ml (<200); Cannabinoid Screen,Urine Positive ng/ml (<50); Cocaine Screen,Urine Negative ng/ml (<300); Methadone Screen,Urine Negative ng/ml (<300); Opiate Screen,Urine Negative ng/ml (<300); Phencyclidine Screen,Urine Negative ng/ml (<25)
== END 2023-06-28 23:59 ==
LOC: LAB.DROPOF 17:53
PROVIDERS: PCP Family Medicine; Visit Provider Family Medicine
DX: Z79.899 Other long term (current) drug therapy (principal)
CPT/HCPCS: 80307

== ENCOUNTER 2023-06-29 10:12 | Outpatient (CLI) | payer OTHER, SELFPAY ==
[2023-07-04 12:34] LABS: Opiates Negative ng/mL (Cutoff=100)
== END 2023-06-29 23:59 ==
LOC: LAB.DROPOF 07-04 10:12
PROVIDERS: PCP Family Medicine; Visit Provider Family Medicine
DX: Z79.899 Other long term (current) drug therapy (principal)
CPT/HCPCS: 80361; G0480

== ENCOUNTER 2023-08-18 17:25 | Emergency (ER) | payer OTHER, SELFPAY ==
--- NOTE | 2023-08-18 17:25 | ECG_ITS ---
APPROVED REPORT Exam: Resting ECG HR:66 bpm ECG Measurements Heart Rate 66 AXES HI 152 P 65 QRSd 103 QRS 66 QT 383 T 64 QTc 396 Conclusion SINUS RHYTHM NORMAL ECG UNCONFIRMED REPORT Electronically signed by : ANDERSON MORALES, 08/18/2023 21:02:22
[2023-08-18 17:32] VITALS: BP 124/80; PULSE 65; RESP 18; TEMP 37.2; O2SAT 97; BMI 33.8
--- NOTE | 2023-08-18 17:32 | XR_ITS ---
PROCEDURE INFORMATION: Exam: XR Chest Exam date and time: 08/18/2023 5:36 PM Age: 43 years old Clinical indication: Other: Chest pain; Additional info: Cp TECHNIQUE: Imaging protocol: Radiologic exam of the chest. Views: 1 view. COMPARISON: CT CHEST WO CON 12/23/2022 3:23 PM and chest x-ray 07/28/2021 FINDINGS: Lungs: Unremarkable. No consolidation. Pleural spaces: Unremarkable. No pleural effusion. No pneumothorax. Heart/Mediastinum: Unremarkable. No cardiomegaly. Bones/joints: Unremarkable. IMPRESSION: No acute findings.
--- NOTE | 2023-08-18 17:40 | PC.NURSE ---
XR AT BEDSIDE
[2023-08-18] MEDS: ASPIRIN 325MG TABLET 325 MG PO (17:48)
--- NOTE | 2023-08-18 17:48 | PC.NURSE ---
DR MORALES AT BEDSIDE
[2023-08-18 17:49] LABS: Basophils # 0.1 K/mm3 (0-0.2); Basophils % 0.9 % (0.1-2.0); Eosinophils # 0.3 K/mm3 (0.0-0.4); Eosinophils % 3.3 % (0.1-12.0); Hematocrit 52.6 % (42.0-52.0); Hemoglobin 16.7 g/dL (14.1-18.0); Lymphocytes # 2.7 K/mm3 (0.7-4.5); Lymphocytes % 30.6 % (10-50); Mean Corpuscular HGB Conc 31.8 g/dL (31.8-35.4); Mean Corpuscular Hemoglobin 32.8 pg (27.0-31.2); Mean Corpuscular Volume 103.1 fl (80-94); Mean Platelet Volume 7.7 fl (7.4-10.4); Monocytes # 0.7 K/mm3 (0.1-1.0); Neutrophils # 4.9 K/mm3 (1.8-7.8); Neutrophils % 57.2 % (37.0-80.0); Platelet Count 286 K/mm3 (142-424); Red Cell Distribution Width 13.1 % (11.5-17.5); White Blood Count 8.6 K/mm3 (4.8-10.8)
[2023-08-18 18:00] VITALS: BP 129/78; PULSE 62; RESP 12; O2SAT 97
[2023-08-18 18:00] LABS: Alanine Aminotransferase 29 U/L (12-78); Albumin Level 4.2 g/dl (3.5-5.0); Albumin/Globulin Ratio 1.4 (1.1-1.8); Alkaline Phosphatase 56 U/L (38-126); Anion Gap 9.3 mEq/L (5-15); Aspartate Amino Transferase 28 U/L (17-59); Bilirubin,Total 0.4 mg/dl (0.2-1.3); Blood Urea Nitrogen 14 mg/dl (9-20); Carbon Dioxide 30 mmol/L (22.0-30.0); Chloride 106 mmol/L (98-107); Creatinine Clearance Estimated 129 mL/min (50-200); Estimated Glomerular Filt Rate 81 ml/min (>60); GFR (African American) 98 ML/MIN (>60); Globulin 3.1 g/dL (1.3-3.2); Glucose 109 mg/dl (74-100); Lipase 84 U/L (23-300); Potassium 4.3 mmoL/L (3.5-5.1); Sodium 141 mmol/L (136-145); Total Protein,Serum 7.3 g/dl (6.3-8.2)
[2023-08-18 18:12] LABS: NT Pro Brain Natriuretic Pep. < 20.0 pg/mL (0-125)
[2023-08-18 18:15] VITALS: BP 142/75; PULSE 60; RESP 14; O2SAT 98
[2023-08-18 18:22] LABS: Troponin I < 0.01 ng/ml (0.00-0.034)
[2023-08-18 18:30] VITALS: BP 129/75; PULSE 53; RESP 15; O2SAT 95
[2023-08-18 18:45] VITALS: BP 118/74; PULSE 66; RESP 14; O2SAT 95
--- NOTE | 2023-08-18 19:09 | ED_ITS ---
Discharge Plan Disposition Patient Disposition: Home, Self-Care Prescriptions Prescriptions: New esomeprazole magnesium 20 mg capsule,delayed release(DR/EC) 20 mg PO DAILY 56 Days Qty: 56 1RF No Action albuterol sulfate 90 mcg/actuation HFA aerosol inhaler INHALATION losartan 100 mg tablet 100 mg PO DAILY Qty: 90 3RF amlodipine [Norvasc] 10 mg tablet 10 mg PO DAILY Qty: 90 3RF nystatin 100,000 unit/gram cream 1 applic topical QID Qty: 30 3RF terbinafine HCl 250 mg tablet 250 mg PO DAILY Qty: 28 1RF terbinafine HCl 250 mg tablet 250 mg PO DAILY 42 Days Qty: 42 0RF oxycodone-acetaminophen [Percocet] 5-325 mg tablet 1 tab PO DAILY PRN (Reason: pain) Qty: 30 0RF nicotine 21 mg/24 hr patch 24 hour 1 patch transdermal DAILY Qty: 28 10RF bupropion HCl [Wellbutrin XL] 150 mg tablet extended release 24 hr 150 mg PO DAILY Qty: 90 3RF Referrals Follow up/Referrals: Yunior Ramirez MD [Primary Care Provider] - See instructions Dennis Barnhart MD [Staff Physician] - See instructions Activity Restrictions/Add. Instructions Additional Instructions/Restrictions: Call your family doctor to establish care for this visit to the emergency department and schedule follow-up within 48 hours to ensure improvement. If you have any worsening of your condition or any other concerning signs or symptoms, return to the emergency department or your primary care doctor for further evaluation. Take medication every night and follow-up with your family doctor regarding this visit to the emergency department. If it does not seem to help after about 7 days, you can double the dose and take 40 mg nightly. Still follow-up with cardiology regarding this visit and further cardiac testing. Clinical Impressions Clinical Impression: Chest pain Qualifiers: Chest pain type: unspecified Qualified Code(s): R07.9 - Chest pain, unspecified Discharge ED Provider: Tom العلي General Chief Complaint: Chest Pain Stated Complaint: chest pain Time Seen by Provider: 08/18/23 17:32 Mode of Arrival: Ambulatory Limitations: No Limitations Description of Symptoms (Recalled from ER Triage Doc. by RN): PT REPORTS DIFFUSE CHEST PAIN. RADIATES ACROSS CREST, UP NECK AND LEFT SHOULDER. ONGOING FOR 10 DAYS. PAIN DULL AND ACHES. DENIES N/V, DENIES FEVER CHILLS OR SHORTNESS OF BREATH. History of Present Illness HPI narrative: 43-year-old male is 3 of COPD still currently smoking presenting with chest pain. Patient states that he has had dull, throbbing chest pains for the past week or so. Sometimes on the right side of his chest, currently left-sided, dull, radiates to the left side of his neck and left shoulder and feels sore when he moves his left upper extremity. No shortness of breath, nausea vomiting, diaphoresis. States that he has a family history of sudden cardiac and early cardiac , including his biological sister who at 32 years old. Related Data Home Medications Medication Instructions Recorded Confirmed albuterol sulfate 90 mcg/actuation inhalation 07/21/19 06/28/23 aerosol inhaler Previous Rx's Medication Instructions Recorded terbinafine HCl 250 mg tablet 250 mg PO DAILY #28 tabs 10/17/22 losartan 100 mg tablet 100 mg PO DAILY #90 tabs 11/28/22 amlodipine 10 mg tablet (Norvasc) 10 mg PO DAILY #90 tabs 12/12/22 bupropion HCl 150 mg 24 hr tablet, 150 mg PO DAILY #90 tabs 12/25/22 extended release (Wellbutrin XL) nicotine 21 mg/24 hr daily 1 patch transdermal DAILY #28 ea 12/25/22 transdermal patch nystatin 100,000 unit/gram topical 1 applic topical QID #30 grams 03/17/23 cream terbinafine HCl 250 mg tablet 250 mg PO DAILY 6 weeks #42 tabs 04/27/23 oxycodone-acetaminophen 5 mg-325 1 tab PO DAILY PRN pain #30 tabs 06/28/23 mg tablet (Percocet) esomeprazole magnesium 20 mg 20 mg PO DAILY 8 weeks #56 caps 08/18/23 capsule,delayed release Allergies Allergy/AdvReac Type Severity Reaction Status Date / Time erythromycin base Allergy Unknown Verified 06/28/23 08:21 [ERYTHROMYCIN BASE] [facility] Disclaimer: The information contained in this section may have been updated after the patient was seen, as this information can be updated by other users. Medical History Onychomycosis Tinea corporis Surgical History Hx of appendectomy Hx of elbow surgery Social History Smoking Status: Current every day smoker tobacco type: cigarettes packs per day: 1 alcohol intake: never substance use type: denies use current occupational status: employed Travel in the last 8 weeks: None household members: family housing: house ROS Obtained: Yes All systems reviewed & no additional complaints except as documented Physical Exam General General appearance: alert Neck Neck exam: Present trachea midline Chest Chest inspection: Present normal inspection and symmetric chest wall rise Respiratory Respiratory exam: Present normal lung sounds bilaterally; Absent respiratory distress, wheezes, stridor, accessory muscle use or prolonged expiratory phase Cardiovascular Cardiovascular exam: Present regular rate and normal rhythm Extremities Exam Extremities exam: Absent edema Neurological Exam Neurological exam: Present alert, oriented X3 and CN II-XII intact Skin Skin exam: Present warm and dry; Absent cyanosis, diaphoresis or pallor HEART Score HEART Score HEART Score assessment performed?: Yes History (anamnesis): Moderately suspicious ECG: Normal Age: 45-65 years Risk factors: 1-2 risk factors Troponin: </= normal limit HEART Score: 3 Critical Care Critical Care Time Critical Care Time: No Medical Decision Making Medical Records Medical records reviewed: Yes I reviewed the patient's medical records. Jaison Inquiry Pt receiving controlled substance: No Jaison was queried for this patient: No Vital Signs Vital Signs: 08/18/23 17:32 08/18/23 18:00 08/18/23 18:15 Temperature 99.0 F Temperature Source Oral Pulse Rate 62 60 Pulse Rate [Apical] 65 Respiratory Rate 18 12 14 Blood Pressure 129/78 142/75 H Blood Pressure [Left Arm] 124/80 Blood Pressure Mean [Left Arm] 94 Blood Pressure Source [Left Arm] Automatic Cuff 02 Sat by Pulse Oximetry 97 97 98 Oxygen Delivery Method Room Air Room Air Room Air 08/18/23 18:30 08/18/23 18:45 Temperature Temperature Source Pulse Rate 53 L 66 Pulse Rate [Apical] Respiratory Rate 15 14 Blood Pressure 129/75 118/74 Blood Pressure [Left Arm] Blood Pressure Mean [Left Arm] Blood Pressure Source [Left Arm] 02 Sat by Pulse Oximetry 95 95 Oxygen Delivery Method Room Air Room Air Lab Data Labs: Lab Results 08/18/23 17:35: WBC 8.6, RBC 5.10, Hgb 16.7, Hct 52.6 H, MCV 103.1 H, MCH 32.8 H , MCHC 31.8, RDW 13.1, Plt Count 286, MPV 7.7, Neut % (Auto) 57.2, Lymph % (Auto) 30.6, [place] % (Auto) 8.0, Eos % (Auto) 3.3, Baso % (Auto) 0.9, Neut # (Auto) 4.9, Lymph # (Auto) 2.7, [place] # (Auto) 0.7, Eos # (Auto) 0.3, Baso # (Auto) 0.1, Sodium 141, Potassium 4.3, Chloride 106, Carbon Dioxide 30, Anion Gap 9.3, BUN 14, Creatinine 1.00, Estimated Creat Clear 129, Estimated GFR 81, Est GFR ( Amer) 98, Glucose 109 H, Calcium 9.0, Total Bilirubin 0.4, AST 28, ALT 29, Alkaline Phosphatase 56, Troponin I < 0.01, NT-Pro-B Natriuret Pep < 20.0, Total Protein 7.3, Albumin 4.2, Globulin 3.1, Albumin/Globulin Ratio 1.4, Lipase 84 08/18/23 20:25: Troponin I < 0.01 08/18/23 17:35 08/18/23 17:35 Response Orders (Tests/Meds): ED MEDICATIONS Discontinued Medications Generic Name Dose Route Start Last Admin Trade Name Freq PRN Reason Stop Dose Admin Aspirin 325 mg 08/18/23 17:32 08/18/23 17:48 Aspirin 325mg Tablet PO 08/18/23 17:33 325 mg ONCE ONE Administration ORDERS Category Date Time Status XR chest portable Stat Exams 08/18/23 17:32 Completed Brain Natriuretic Peptide Stat Lab 08/18/23 17:35 Completed Complete Blood Count Auto Diff Stat Lab 08/18/23 17:35 Completed Comprehensive Metabolic Panel Stat Lab 08/18/23 17:35 Completed Lipase Stat Lab 08/18/23 17:35 Completed Troponin I Q3H Lab 08/18/23 20:25 Completed Troponin I Q3H Lab 08/18/23 23:45 Ordered Troponin I Stat Lab 08/18/23 17:35 Completed MDM Narrative Medical Decision Narrative: 43-year-old male is 3 of COPD still currently smoking presenting with chest pain. Patient states that he has had dull, throbbing chest pains for the past week or so. Sometimes on the right side of his chest, currently left-sided, dull, radiates to the left side of his neck and left shoulder and feels sore when he moves his left upper extremity. No shortness of breath, nausea vomiting, diaphoresis. States that he has a family history of sudden cardiac and early cardiac , including his biological sister who at 32 years old. History was obtained via conversation with patient. On arrival, patient hemodynamically stable, alert, oriented x4, appropriate, GCS 15, moving all extremities spontaneously, pupils equal and reactive to light. Full physical exam performed and significant for well-appearing male no acute distress. Lungs are clear to auscultation bilaterally. No abnormal cardiac sounds with normal S1 and S2 without murmurs, gallops, or rubs. No lower extremity edema. Pulses equal and symmetric. Differential includes microvascular coronary artery disease, CHF, ACS, RI, coronary artery dissection, pneumothorax, PE, dissection, pericarditis, myocarditis, pneumothorax, aortic aneurysm, pneumonia, bronchitis, among others. Patient was given 324 mg aspirin for symptomatic management and correction of underlying abnormalities. Workup independently interpreted and significant for nonactionable CBC or chemistry. Initial troponin negative. BNP negative. Chest x-ray without acute cardiopulmonary airspace disease. See radiology read for full review of final results. Independent interpretation of EKG shows sinus rhythm 66 beats a minute without ST or T wave changes concerning for acute ischemia. [place], QRS, QT intervals within normal limits. [place] normal. Patient placed on continuous cardiac monitoring and continuous pulse ox with initial blood pressure 129/69, pulse rate 54, saturation 95 on room air. Heart score 3. Patient was placed in observation beginning at 6 PM in order to rule out evolving RI with delta troponin and determine need for admission versus home-going. The patient was provided serial exams and monitoringWhile awaiting results. Independent interpretation of results demonstrated negative delta troponin. On reevaluation, patient feeling better without acute complaints at this time. Further conversation was had with patient and regarding symptoms. Patient does have reflux and is up during the night with the symptoms as well. Takes Tums throughout the night. Patient was given initial dose of PPI here in the emergency department. At this time, I feel patient is appropriate for discharge. Total observation time 3 hours. Given patient presentation, workup, history, this most likely represents gastric reflux disease versus cardiac disease. Because of patient's history, it is recommended that he still follows up with cardiology and has formal testing completed, he is agreeable to this plan. Sent home with proton pump inhibitor and close return precautions.
[2023-08-18 21:04] LABS: Troponin I < 0.01 ng/ml (0.00-0.034)
[2023-08-18] MEDS: PANTOPRAZOLE 40MG TABLET 40 MG PO (21:16)
[2023-08-18 21:28] VITALS: BP 136/90; PULSE 53; RESP 14; TEMP 36.6; O2SAT 97
== END 2023-08-18 21:29 | disposition home or self-care (01) ==
PROVIDERS: Emergency Provider Emergency Medicine; PCP Family Medicine
DX: R07.9 Chest pain, unspecified (principal); M54.2 Cervicalgia; M25.512 Pain in left shoulder; J44.9 Chronic obstructive pulmonary disease, unspecified; F17.210 Nicotine dependence, cigarettes, uncomplicated
CPT/HCPCS: 71045; 80053; 83690; 83880; 84484; 85025; 93005; 99285

== ENCOUNTER 2023-09-19 11:45 | Outpatient (CLI) | payer OTHER, SELFPAY ==
--- NOTE | 2023-09-19 11:49 | XR_ITS ---
FINAL REPORT CLINICAL HISTORY: right shoulder pain FINDINGS: 4 views of the right shoulder reveal no evidence of fracture. The AC joint is intact. No focal soft tissue abnormality is identified. IMPRESSION: No acute bony abnormality. Authenticated and ERN
== END 2023-09-19 23:59 ==
LOC: RAD 11:45
PROVIDERS: PCP Family Medicine; Visit Provider Physician Assistant Surgical
DX: M25.511 Pain in right shoulder (principal)
CPT/HCPCS: 73030

== ENCOUNTER 2023-10-06 07:59 | Outpatient (CLI) | payer OTHER, SELFPAY ==
--- NOTE | 2023-10-06 08:03 | CT_ITS ---
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 A noncontrast coronary calcium scan was performed. A CT attenuation threshold of 130 Hounsfield units (HU) was used for the detection of calcium in contiguous voxels of 1 sq mm in area to be counted as individual lesions. A tube voltage of 120 KVp was used. The patient received no medications prior to the coronary calcium CT. Image Reconstruction Transaxial images were reconstructed at 0.67 mm slide thickness. Data was reviewed interactively on an advanced workstation capable of 2 and 3-dimensional displays in all conventional reconstruction formats, including multiplanar reformations, maximum intensity projections, curved multiplanar reformations, and volume rendered reconstructions. When applicable, selected routine images describing the relevant coronary anatomy and pathology were saved and sent to PACS. Complications None Technical Quality Overall image quality was good. Total DLP (Dose-Length Product) is 197.88 mGy-cm. The reported value represents the total of one or more individual components during the CT acquisition of this date and at this time, and as such, the same value may appear in more than one CT report depending on the interpreting/reporting physicians. COMPARISON None FINDINGS CT Coronary Calcium Scoring LMA (Left Main Artery) = 0 LAD (Left Anterior Descending) = 165 LCX (Left Coronary Circumflex) = 47 RCA (Right Coronary Artery) = 251 Total Calcium Score = 463 using the AJ-130 method. There is no identifiable calcification in the aortic valve, mitral annulus or mitral valve, pericardium, or myocardium. IMPRESSION -Coronary artery calcification is present. -Total Calcium Score (Agatston Score) = 463 using the AJ-130 method. -The observed calcium score of 463 is at 99th percentile for subjects of the same age, sex, and race/ethnicity. The interpretation of the calcium heart score is based on the following continuum*: 0 = no calcified plaque detected (risk of coronary artery disease is very low ??? less than 5%) 1-10 = calcium detected in extremely minimal levels (risk of coronary diseases is still low ??? less than 10%) 11-100 = mild levels of plaque detected with certainty (mild or minimal narrowing of heart arteries is likely) 101-400 = definite,at least moderate levels of plaque detected (relatively high risk of a heart attack within 3-5 years) >401-999 = extensive levels of plaque detected (high risk of heart attack, high levels of vascular disease are present, high likelihood of at least one significant coronary narrowing) *The calcium heart score quantifies the burden of coronary calcification/plaque in the coronary arteries. The calcium heart score does not evaluate the presence or the burden of non-calcified (i.e. soft) plaque. The coronary and cardiac findings of this Coronary Calcium CT were reviewed, reported, and signed by Jacob Moore MD (Pharmacy Teacher). Conclusion Electronically signed by : Susanna Moore MD 10/10/2023 11:07:45
== END 2023-10-06 23:59 ==
LOC: RAD 08:00
PROVIDERS: PCP Family Medicine; Visit Provider Family Medicine
DX: R07.9 Chest pain, unspecified (principal)
CPT/HCPCS: 75571

== ENCOUNTER 2023-10-17 14:38 | Outpatient (CLI) | payer OTHER, SELFPAY ==
[2023-10-17 15:50] LABS: Basophils # 0.1 K/mm3 (0-0.2); Basophils % 0.6 % (0.1-2.0); Eosinophils # 0.2 K/mm3 (0.0-0.4); Hematocrit 53.4 % (42.0-52.0); Hemoglobin 17.6 g/dL (14.1-18.0); Lymphocytes # 2.3 K/mm3 (0.7-4.5); Lymphocytes % 24.8 % (10-50); Mean Corpuscular HGB Conc 32.9 g/dL (31.8-35.4); Mean Corpuscular Hemoglobin 32.4 pg (27.0-31.2); Mean Corpuscular Volume 98.4 fl (80-94); Mean Platelet Volume 7.2 fl (7.4-10.4); Monocytes # 0.6 K/mm3 (0.1-1.0); Monocytes % 6.4 % (1.7-9.3); Neutrophils % 66.2 % (37.0-80.0); Platelet Count 293 K/mm3 (142-424); Red Blood Count 5.43 M/mm3 (4.60-6.20); Red Cell Distribution Width 13.6 % (11.5-17.5)
[2023-10-17 16:15] LABS: Alanine Aminotransferase 24 U/L (12-78); Albumin Level 4.7 g/dl (3.5-5.0); Alkaline Phosphatase 56 U/L (38-126); Anion Gap 11.5 mEq/L (5-15); Aspartate Amino Transferase 24 U/L (17-59); Bilirubin,Direct 0.2 mg/dl (0.0-0.4); Bilirubin,Indirect 0.4 mg/dL (0.0-0.9); Bilirubin,Total 0.6 mg/dl (0.2-1.3); Bilirubin,Unconjugated 0.4 mg/dL (0.0-1.1); Blood Urea Nitrogen 10 mg/dl (9-20); Calcium 9.8 mg/dl (8.4-10.2); Carbon Dioxide 27 mmol/L (22.0-30.0); Chloride 106 mmol/L (98-107); Chol/HDL Ratio 3.9 (1-3.5); Cholesterol 213 mg/dl (140-200); Estimated Glomerular Filt Rate 91 ml/min (>60); GFR (African American) 110 ML/MIN (>60); Glucose 89 mg/dl (74-100); HDL Cholesterol 54 mg/dl (40-60); Potassium 4.5 mmoL/L (3.5-5.1); Sodium 140 mmol/L (136-145); Total Protein,Serum 7.7 g/dl (6.3-8.2); Triglycerides 155 mg/dl (30-150); VLDL Cholesterol 31 mg/dL (0-40)
[2023-10-17 16:26] LABS: Direct LDL Cholesterol 137.26 mg/dL (100-129)
[2023-10-17 16:30] LABS: Free T4 (Free Thyroxine) 1.05 ng/dl (0.78-2.19)
[2023-10-17 16:45] LABS: Thyroid Stimulating Hormone 1.96 uIU/mL (0.465-4.68)
== END 2023-10-17 23:59 | disposition home or self-care (01) ==
LOC: LAB 14:39
PROVIDERS: PCP Family Medicine; Visit Provider Internal Medicine
DX: R07.9 Chest pain, unspecified (principal); R93.1 Abnormal findings on diagnostic imaging of heart and coronary circulation; Z82.49 Family history of ischemic heart disease and other diseases of the circulatory system
CPT/HCPCS: 36415; 80048; 80061; 80076; 83735; 84439; 84443; 85025

== ENCOUNTER 2023-10-27 11:17 | Outpatient (CLI) | payer OTHER, SELFPAY ==
--- NOTE | 2023-10-27 | CA_ITS ---
APPROVED REPORT Exam: Exercise Treadmill Technologist: Kaela Quintana, Ht: 5 ft 8 in Wt: 204 lbs BSA: 2.06 m2 HR: 51 bpm BP: 152/89 mmHg Rhythm: sinus jovani, nonspecific T wave abns inferiorly Indications: CP, FMHX Medical History Medications: PERCOCET,,,,, Albuterol,,,,, Cardiac Risk Factors: FHX of CAD, Smoking Stress Test Details Test: Michael HR Resting HR: 64 bpm Max Heart Rate (APMHR): 175 bpm Max HR Achieved: 216 bpm Target HR (85% APMHR): 149 bpm % of APMHR: 123 Recovery HR: 126 bpm HR response to stress: Normal HR response to stress BP Resting BP: 140.0/99 mmHg Max BP: 198/90 mmHg Recovery BP: 161.0/98.0 mmHg BP response to stress: Normal blood pressure response to stress. ECG Resting ECG: sinus jovani, nonspecific T wave abns inferiorly Stress EC mm horizontal ST depression Arrhythmia: Frequent PVCs, couplets, triplets, NSVT Recovery ECG: Return to baseline within 3 minutes of recovery Recovery Arrhythmia: PVCs Clinical Exercise duration: 10:46 min Highest Stage Achieved: Exercise capacity: 12.8 METs Overall Exercise Capacity for Age: Average Stress ECG Conclusion Pt exercised totsl of 10:46 minutes on michael protocol. He was able to achieve a total of 12.8 METS. He has average exercise capacity compared to age and sex matched peers. He has normal HR and BP response to exercise. No CP noted. Ectopy: Ventricular ectopy in stage 4 with NSVT (two 4-beat of VT and 3 beat). Two ventricular couplets. ST changes: [address] depression Conclusion: Average exercise capacity. ECG changes suggestive of possible ischemia. Non substained VT at high level exercise. Myoview images reported separately. Test Summary REST . . . . . . . Sitting REST . . . . . . . Standing REST 03:48 0.0 0.0 64 . 140/ 99 . . Stage 1 01:00 10.0 1.7 86 . . . . Stage 1 02:00 10.0 1.7 89 . . . . Stage 1 03:00 10.0 1.7 90 . 146/ 90 . . Stage 2 01:00 12.0 2.5 102 . . . . Stage 2 02:00 12.0 2.5 106 . . . . Stage 2 03:00 12.0 2.5 108 . 176/ 90 . . Stage 3 01:00 14.0 3.4 160 . . . . Stage 3 02:00 14.0 3.4 132 . . . . Stage 3 03:00 14.0 3.4 140 . 198/ 90 . . Stage 4 01:00 16.0 4.2 148 . . . . Stage 4 01:46 16.0 4.2 160 . . . Stop exercise at 10:46 RECOVERY 01:00 0.0 0.0 131 . . . . RECOVERY 02:00 0.0 0.0 102 . 161/ 98 . . RECOVERY 03:00 0.0 0.0 97 . 162/ 90 . . RECOVERY 04:00 0.0 0.0 98 . 162/ 90 . . RECOVERY 05:00 0.0 0.0 93 . 155/ 99 . . RECOVERY 05:30 0.0 0.0 93 . 155/ 99 . . Electronically signed by : Susanna Moore MD 10/30/2023 13:02:51
--- NOTE | 2023-10-27 11:17 | NM_ITS ---
APPROVED REPORT Exam: Nuclear Stress Test Indication: obesity, hyperlipidemia, tob use, fm hx, c.p., palpitations, , nausea Patient Location: Outpatient Stress Tech: Kaela Quintana [place] Tech:TRISTAN Robertson RT (R)(N)(M) Ht: 5 ft 7 in Wt: 204 lbs HR: 51 bpm BP: 152/89 mmHg BSA: 2.04 m2 TID: 1.15 BMI: 31.9 History: obesity, hyperlipidemia, tob use, fm hx, c.p., palpitations, , nausea Procedure: Patient exercised on Michael protocol 10:46 minutes and sec, resting heart rate 51 bpm, resting blood pressure 152/89 mmHg, with exercise maximum heart rate achived was 160 bpm which is 91 % of the maximum predicted heart rate and blood pressure was 198/92 mmHg. Test was stopped due to fatigue. Patient denied any complaint of chest pain. Patient has Average exercise capacity, achieved 10.1 METs of workload on treadmill, the blood pressure response to exercise was Normal. Cardiac Stress and Resting SPECT Images: Cardiac Stress and Resting SPECT images were obtained using technetium 99m Myoview 32.8 mCi stress and 10.59 mCi at rest. Resting and stress imaging in supine and prone positions demonstrate a medium sized, moderate, partially reversible perfusion defect in the basal to mid inferior LV wall. Gated imaging demonstrates normal global and regional LV systolic function. There is mild hypokinesis of the basal inferior LV wall. LVEF is calculated at 54%. Conclusion: Medium sized, moderate, partially reversible perfusion defect in the basal to mid inferior LV wall. Findings are suggestive of partial reversible ischemia. Gated imaging demonstrates normal global and regional LV systolic function. There is mild hypokinesis of the basal inferior LV wall. LVEF is calculated at 54%. Of note, the patient has more frequent ectopy, including PVCs, ventricular couplets and triplets, and NSVT, at high level of exercise stress testing. Electronically signed by : Susanna Moore MD 10/30/2023 13:04:40
--- NOTE | 2023-10-27 13:13 | CA_ITS ---
APPROVED REPORT EXAM: Comprehensive 2D, Doppler, and color-flow Echocardiogram Rn Placement: Ekaterina Alvares RVT Ht: 5 ft 8 in Wt: 204lbs BSA: 2.06 BP: 157/102 mmHg Indications: CP,HTN,SMOKER 2D Dimensions IVSd 1.35 cm M: 0.6-1.2 LVEF (Visual) 60.00 % PWd 0.72 cm M: 0.6 - 1.2 LA Volume 45.00 mL LVDd 3.26 cm M: 4.2 - 5.9 LA Volume Index 21.84 mL/m2 (M/F) 16-34 LVDs 2.25 cm M: 2.5 - 4.0 M-Mode Dimensions LA Diam 3.66 cm (1.9-4.0) TAPSE 2.09 (<1.7) LV Diastology E Decel Time 203 (160-240 msec) E/A Ratio 1.0 Aortic Valve ARANZA Index 1.80 cm2/m2 AoV Peak Greg. 134.0 (50-130 cm/s) AO Peak GR. 7.20 mmHg AO Mean GR. 4.10 (<5 mmHg) AO VTI 26.3 (18-25 cm) ARNAZA (VTI) 3.80 (2.5-4.5 cm2) Mitral Valve MV E Max Greg. 70.0 (40-130 cm/s) MV A Velocity 73.0 (40-130 cm/s) E/A Ratio 0.96 MV PHT 60.0 ms Pulmonary Valve PV Peak Velocity 91.0 (50-150 cm/s) Tricuspid Valve TR P. Velocity 186.00 cm/s RAP Estimate 10.00 mmHg RVSP 23.90 mmHg Left Ventricle The left ventricle is normal size. The left ventricular systolic function is normal. The left ventricular ejection fraction is within the normal range. There is normal left ventricular wall thickness. There is normal LV segmental wall motion. The left ventricular diastolic function is normal. LVEF is 55%. Right Ventricle The right ventricle is normal size. The right ventricular systolic function is normal. Atria The left atrium size is normal. The right atrium size is normal. There is no Doppler evidence of interatrial shunt. Aortic Valve The aortic valve opens well. There is no aortic valvular stenosis. No aortic regurgitation is present. Mitral Valve The mitral valve is normal in structure. No evidence of mitral valve stenosis. There is no mitral valve regurgitation noted. Tricuspid Valve The tricuspid valve leaflets are thin and pliable. Trace tricuspid regurgitation. There is insufficient TR jet to estimate RVSP. Pulmonic Valve The pulmonary valve is normal in structure. Trace pulmonic regurgitation. Great Vessels The aortic root is normal in size. The ascending aorta is normal in size. IVC is normal in size and collapses >50% with inspiration. Pericardium There is no pericardial effusion. Other Information Study Quality: Adequate Conclusion Normal biventricular systolic function. No significant valvular stenosis or regurgitation. Electronically signed by : Susanna Moore MD 10/31/2023 12:00:46
[2023-10-27] MEDS: SODIUM CHLORIDE 0.9% 10ML SYR (RAD ONLY) 10 ML IV ×2 (15:32)
[2023-10-27] MEDS: ISOTOPE MYOVIEW (PER STUDY) 1 DOSE IV (15:32)
== END 2023-10-27 23:59 | disposition home or self-care (01) ==
LOC: RAD 11:17
PROVIDERS: PCP Family Medicine; Visit Provider Internal Medicine
DX: R07.9 Chest pain, unspecified (principal); R93.1 Abnormal findings on diagnostic imaging of heart and coronary circulation; F17.210 Nicotine dependence, cigarettes, uncomplicated; Z82.49 Family history of ischemic heart disease and other diseases of the circulatory system
CPT/HCPCS: 78452; 93017; 93018; 93306; A9502

== ENCOUNTER 2023-11-14 08:01 | Day surgery (SDC) | payer OTHER, SELFPAY ==
[2023-11-14] VITALS (11 sets, daily range): BP systolic 110–176; BP diastolic 73–99; PULSE 48–66; RESP 18–20; TEMP 36.6; O2SAT 94–98; BMI 30.7
--- NOTE | 2023-11-14 07:21 | IR_ITS ---
APPROVED REPORT Patient Location: Outpatient Swaging Machine Adjuster: TRISTAN Cisneros RT (R) PROCEDURES Left heart catheterization Left ventriculogram Selective coronary angiogram INDICATION Abnormal Myoview, Abnormal CCTA, Coronary artery disease, Atypical angina Informed consent was obtained prior to the procedure. COMPLICATIONS None Estimated Blood Loss: Less than 10 mls TECHNIQUE One percent lidocaine used to anesthetize the right anterior aspect of the wrist. The right radial artery was accessed via the Seldinger technique. A 6 Qatari sheath was placed in the right radial artery. 2.5 mg of Verapamil, 800 mcg of nitroglycerin, 1mg Lidocaine and 5000 U Heparin were given through the arterial sheath. The papa catheter was also used to perform left heart catheterization, left ventriculogram and selective coronary angiogram. At the end of the procedure the sheath was removed good hemostasis was achieved using Traclet band, patient was transferred to the postop holding area in stable condition. ANGIOGRAPHIC RESULTS The left main artery Normal The left anterior descending artery Has proximal 30% stenosis mid vessel 20% stenoses The circumflex artery Nondominant and has proximal 10 to 20% stenoses. The first obtuse marginal artery is large and has proximal concentric 30% stenosis. The true circumflex artery has a 60% stenosis immediately after the first obtuse marginal artery however the vessel supplies a small amount of myocardium distally. There is an additional eccentric 80 to 90% stenosis in the midportion which then gives off 3 small distal obtuse marginal arteries. The vessel is less than 2 mm in diameter at the severely stenotic area The right coronary artery Dominant has proximal 30% stenosis with a mid vessel concentric 50 to 60% stenosis followed by distal eccentric 40% stenosis The THOMAS ventriculogram reveals Normal 65% The left ventricular end-diastolic pressure 15 mmHg IMPRESSION Mild proximal and mid LAD disease as described above Severe stenosis in the mid to distal nondominant circumflex artery in the vessel which still supplies a small to moderate amount of myocardium Moderate to severe stenosis in the mid dominant right coronary Normal ejection fraction Borderline LVEDP PLAN 1. I suspect patient's angina pectoris is likely stemming from the mid circumflex artery stenosis which is too small for percutaneous revascularization 2. It is possible patient's atypical angina may be nonischemic at this point. Given the lack of antianginal medications and the paucity of angina I would recommend medical management unless symptoms become recalcitrant 3. Currently patient is on no antianginal medications therefore Norvasc 2.5 p.o. daily will be added 4. Recommend LDL less than 55 to be achieved with high intensity statin 5. Although the Myoview defect did involve the inferior wall this is still low enough risk where I believe medical management is most warranted 6. Avoidance of tobacco products Electronically signed by : Dennis Barnhart MD 11/14/2023 10:53:01
[2023-11-14 08:38] LABS: Basophils # 0.1 K/mm3 (0-0.2); Basophils % 0.7 % (0.1-2.0); Eosinophils # 0.2 K/mm3 (0.0-0.4); Eosinophils % 2.1 % (0.1-12.0); Hematocrit 54.1 % (42.0-52.0); Hemoglobin 17.2 g/dL (14.1-18.0); Lymphocytes % 24.1 % (10-50); Mean Corpuscular HGB Conc 31.8 g/dL (31.8-35.4); Mean Corpuscular Hemoglobin 32.2 pg (27.0-31.2); Mean Corpuscular Volume 101.5 fl (80-94); Mean Platelet Volume 7.5 fl (7.4-10.4); Monocytes # 0.5 K/mm3 (0.1-1.0); Neutrophils # 5.5 K/mm3 (1.8-7.8); Platelet Count 275 K/mm3 (142-424); Red Blood Count 5.33 M/mm3 (4.60-6.20); Red Cell Distribution Width 13.9 % (11.5-17.5); White Blood Count 8.3 K/mm3 (4.8-10.8)
[2023-11-14 08:41] LABS: Anion Gap 14.4 mEq/L (5-15); Blood Urea Nitrogen 11 mg/dl (9-20); Calcium 9.6 mg/dl (8.4-10.2); Carbon Dioxide 23 mmol/L (22.0-30.0); Chloride 106 mmol/L (98-107); Creatinine Clearance Estimated 134 mL/min (50-200); Estimated Glomerular Filt Rate 91 ml/min (>60); GFR (African American) 110 ML/MIN (>60); Glucose 112 mg/dl (74-100); Potassium 4.4 mmoL/L (3.5-5.1); Sodium 139 mmol/L (136-145)
[2023-11-14] MEDS: LIDOCAINE 1% 10ML MDV 20 ML IJ (10:09)
[2023-11-14] MEDS: HEPARIN 1,000 UNITS/500ML NS (CATH LAB) 3000 UNIT IV (10:09)
[2023-11-14] MEDS: NITROGLYCERIN 800MCG/8ML SYR (CATH LAB) 800 MCG IA (10:10)
[2023-11-14] MEDS: diphenhydrAMINE 50MG/ML VIAL 50 MG IV (10:10)
[2023-11-14] MEDS: HEPARIN 1,000 UNITS/ML 10ML VIAL (CATH LAB) 10000 UNIT IV (10:10)
[2023-11-14] MEDS: VERAPAMIL 2.5MG/ML 2ML VIAL 2.5 MG IV (10:10)
[2023-11-14] MEDS: 0.9 % SODIUM CHLORIDE 500 ML 25 ML IV (10:11)
[2023-11-14] MEDS: MIDAZOLAM HCL 1MG/1ML 5ML VIAL 1 MG IV (10:44)
[2023-11-14] MEDS: FENTANYL 100MCG/2ML VIAL 50 MCG IV (10:45)
[2023-11-14] MEDS: IOPAMIDOL-370 (76%);100ML BOTTLE 90 ML IV (16:41)
== END 2023-11-14 13:43 | disposition home or self-care (01) ==
PROVIDERS: PCP Family Medicine; Visit Provider Internal Medicine
DX: I25.10 Atherosclerotic heart disease of native coronary artery without angina pectoris (principal); R93.1 Abnormal findings on diagnostic imaging of heart and coronary circulation; Z82.49 Family history of ischemic heart disease and other diseases of the circulatory system; Z79.899 Other long term (current) drug therapy; F17.210 Nicotine dependence, cigarettes, uncomplicated
CPT/HCPCS: 80048; 85025; 93458; 99152; C1725; C1769; J1644; Q9967

== ENCOUNTER 2023-11-22 19:41 | Emergency (ER) | payer SELFPAY ==
[2023-11-22 19:43] VITALS: BP 147/87; PULSE 82; RESP 18; TEMP 36.9; O2SAT 98; BMI 31.9
--- NOTE | 2023-11-22 19:50 | ED_ITS ---
<Statement entered by Teddy Almonte MD - 11/22/23 21:17> I was consulted by the KRISTINA, and we discussed the complexity of the problems being addressed. I approved the treatment and management plan for this patient's care in the emergency department, thus performing a substantive portion of the medical decision making. Teddy Almonte MD Discharge Plan Disposition Patient Disposition: Home, Self-Care Condition: Good Prescriptions Prescriptions: New cefdinir 300 mg capsule 300 mg PO BID 10 Days Qty: 20 0RF No Action atorvastatin 80 mg tablet 80 mg PO DAILY Patient Comments: TAKE ONE TABLET BY MOUTH DAILY amlodipine 2.5 mg tablet 2.5 mg PO DAILY Patient Comments: TAKE 1 TABLET BY MOUTH ONCE DAILY. aspirin 81 mg tablet,delayed release (DR/EC) 81 mg PO DAILY Patient Comments: TAKE ONE TABLET BY MOUTH DAILY oxycodone-acetaminophen 5-325 mg tablet 1 tab PO DAILYP PRN (Reason: Pain) Patient Comments: TAKE 1 TABLET BY MOUTH DAILY NEEDED FOR PAIN albuterol sulfate [Ventolin HFA] 90 mcg/actuation HFA aerosol inhaler 1 - 2 inh INHALATION Q6HP PRN (Reason: Shortness Of Breath Or Wheezing) Patient Comments: INHALE 1 TO 2 PUFFS INTO THE LUNGS EVERY 6 HOURS NEEDED FOR WHEEZING. Referrals Follow up/Referrals: Yunior Ramirez MD [Primary Care Provider] - See instructions Activity Restrictions/Add. Instructions Additional Instructions/Restrictions: Please stay hydrated. Please call your PCPs office in the morning to ask for referral for urology. Turn to ER for any worsening signs or symptoms. Stay away from nonsteroidal anti-inflammatories like Naprosyn and Motrin [id number] Clinical Impressions Clinical Impression: Hematuria, Acute bilateral lower abdominal pain, Urinary tract infectious disease Instructions Patient Instructions: DI for Urinary Tract Infection (UTI) Discharge ED Provider: Teddy Almonte General Adult HPI General Chief complaint: Urogenital-Male Stated complaint: peeing brown colored,stomach pain Time Seen by Provider: 11/22/23 19:45 History of Present Illness HPI narrative: She presents for acute onset of lower abdominal pain and hematuria. Patient reports that she woke up this morning with abdominal pain in the bilateral quadrants and noticed that his urine was very brown . Patient recently had a heart cath 2 weeks ago that did not require stenting though it did show cardiovascular disease. He was initiated on Lipitor several weeks ago as well. Patient denies any nausea vomiting chest pain fever chills hemoptysis hematochezia melena hematemesis. Related Data Home Medications Medication Instructions Recorded Confirmed albuterol sulfate 90 mcg/actuation 1 - 2 inh inhalation Q6HP PRN 11/22/23 11/22/23 aerosol inhaler (Ventolin HFA) Shortness Of Breath Or Wheezing amlodipine 2.5 mg tablet 2.5 mg PO DAILY 11/22/23 11/22/23 aspirin 81 mg tablet,delayed 81 mg PO DAILY 11/22/23 11/22/23 release atorvastatin 80 mg tablet 80 mg PO DAILY 11/22/23 11/22/23 oxycodone-acetaminophen 5 mg-325 1 tab PO DAILYP PRN Pain 11/22/23 11/22/23 mg tablet Previous Rx's Medication Instructions Recorded cefdinir 300 mg capsule 300 mg PO BID 10 days #20 caps 11/22/23 Allergies Allergy/AdvReac Type Severity Reaction Status Date / Time erythromycin base Allergy Severe Flushing Verified 11/22/23 20:10 [ERYTHROMYCIN BASE] [facility] Disclaimer: The information contained in this section may have been updated after the patient was seen, as this information can be updated by other users. Medical History (Updated 11/22/23 @ 20:56 by PARVEEN Cazares) Typical angina Hyperlipidemia Hypertension CAD in [place] artery Abnormal findings on diagnostic imaging of heart and coronary circulation Elevated coronary artery calcium score Family history of early CAD Onychomycosis Tinea corporis Surgical History History of cardiac cath Hx of elbow surgery Hx of appendectomy Family History Other Cancer Diabetes FHx: mental illness Heart attack Social History Smoking Status: Current every day smoker tobacco type: cigarettes packs per day: 1 alcohol intake: never substance use type: denies use current occupational status: employed Travel in the last 8 weeks: None household members: family housing: house ROS Obtained: Yes Systems reviewed as appropriate & no additional complaints except as documented Physical Exam General General appearance: alert and in no apparent distress Respiratory Respiratory exam: Present normal lung sounds bilaterally Cardiovascular Cardiovascular exam: Present regular rate and normal rhythm Abdominal Exam Abdominal exam: Present soft, tenderness (Mildly tender palpation suprapubic area) and normal bowel sounds; Absent guarding, rebound or rigidity Back Exam Back exam: Present normal inspection and full ROM; Absent CVA tenderness (R) or CVA tenderness (L) Neurological Exam Neurological exam: Present alert and oriented X3 Medical Decision Making Medical Records Medical records reviewed: Yes I reviewed the patient's medical records. Jaison Inquiry Pt receiving controlled substance: No Vital Signs: 11/22/23 19:43 Temperature 98.4 F Temperature Source Oral Pulse Rate [Left] 82 Respiratory Rate 18 Blood Pressure [Right Arm] 147/87 H Blood Pressure Mean [Right Arm] 107 Blood Pressure Source [Right Arm] Automatic Cuff Blood Pressure Position [Right Arm] Sitting 02 Sat by Pulse Oximetry 98 Oxygen Delivery Method Room Air Lab Data Lab results reviewed: Yes I reviewed the patient's lab results. Lab Results 11/22/23 20:00: WBC 9.2, RBC 5.02, Hgb 16.5, Hct 50.4, MCV 100.5 H, MCH 32.9 H, MCHC 32.8, RDW 13.7, Plt Count 300, MPV 7.3 L, Neut % (Auto) 66.1, Lymph % (Auto) 23.7, Davidson % (Auto) 6.4, Eos % (Auto) 3.0, Baso % (Auto) 0.9, Neut # (Auto) 6.1, Lymph # (Auto) 2.2, Davidson # (Auto) 0.6, Eos # (Auto) 0.3, Baso # (Auto) 0.1, PT 11.1, INR 1.03, Sodium 138, Potassium 3.8, Chloride 105, Carbon Dioxide 26, Anion Gap 10.8, BUN 15, Creatinine 0.90, Estimated Creat Clear 136, Estimated GFR 91, Est GFR ( Amer) 110, Glucose 118 H, Calcium 9.4, Total Bilirubin 0.4, AST 24, ALT 30, Alkaline Phosphatase 54, Total Creatine Kinase 77, Total Protein 7.5, Albumin 4.4, Globulin 3.1, Albumin/Globulin Ratio 1.4 11/22/23 20:09: Urine Color [place], Urine Appearance Cloudy, Urine pH 6.5, Ur Specific [facility] 1.025, Urine Protein Trace, Urine Glucose (UA) Negative, Urine Ketones Negative, Urine Blood 3+, Urine Nitrate Negative, Urine Bilirubin Negative, Urine Urobilinogen 1.0, Ur Leukocyte Esterase Negative, Urine RBC Tntc, Urine WBC 3-5, Ur Squamous Epith Cells 3-5, Urine Bacteria 1+ 11/22/23 20:00 11/22/23 20:00 Orders (Tests/Meds): ED MEDICATIONS Generic Name Dose Route Start Last Admin Trade Name Freq PRN Reason Stop Dose Admin Lactated Ringer's 1,000 mls @ 999 mls/hr 11/22/23 19:51 11/22/23 20:02 Lactated Ringer's 1000 Ml Bag IV 11/22/23 20:51 999 mls/hr .Q1H1M ONE Administration Discontinued Medications Generic Name Dose Route Start Last Admin Trade Name Freq PRN Reason Stop Dose Admin Acetaminophen 1,000 mg 11/22/23 19:51 11/22/23 20:02 Acetaminophen 1,000mg/100ml Vial IV 11/22/23 19:52 1,000 mg ONCE ONE Administration ORDERS Category Date Time Status CT abdomen pelvis wo con Stat Cat Scan 11/22/23 19:59 Completed CBC w/Auto Diff [Complete Blood Count Auto Diff] Stat Lab 11/22/23 20:00 Completed CK [Creatine Kinase] Stat Lab 11/22/23 20:00 Completed CMP [Comprehensive Metabolic Panel] Stat Lab 11/22/23 20:00 Completed INR [Prothrombin Time INR] Stat Lab 11/22/23 20:00 Completed UA [Urinalysis and Microscopic] Stat Lab 11/22/23 20:09 Completed Medical Decision Narrative: In summary patient is a 43-year-old male who presents to the emergency department for evaluation of abdominal pain and hematuria. Patient is hemodynamically stable upon arrival, afebrile. Physical exam is remarkable for no CVA tenderness bilaterally to percussion, mild tenderness to palpation in the lower abdomen but no rebound or guarding or rigidity.. Differential diagnosis includes urinary tract infectious disease, contrast nephropathy, rhabdomyolysis, ureterolithiasis, acute hemorrhagic cystitis etc. Patient recently had heart cath without intervention and has also been started on Lipitor in the last 90 days. Initial workup will be conducted with hematologic labs urinalysis CT scan of the abdomen without contrast. Initial interventions include crystalloid bolus and Tylenol for now. Initial workup reviewed by me shows that his hematologic labs are nonactionable including normal creatinine normal GFR normal BUN normal anion gap and my informal interpretation of CT scan of the abdomen pelvis shows no signs of obstructive uropathy including normal kidneys small contracted bladder. Radiologist read pending.. Upon repeat evaluation patient reports some moderate improvement in symptoms after intervention. Given this patient is appropriate for discharge with a prescription for Omnicef with first dose given here. Patient to follow-up with PCP for urology referral. Return to ER for any worsening signs or symptoms. Critical Care Critical Care Time Critical Care Time: No
--- NOTE | 2023-11-22 19:58 | PC.NURSE ---
Patient bladder scan before void is 83mL
--- NOTE | 2023-11-22 19:59 | CT_ITS ---
PROCEDURE INFORMATION: Exam: CT Abdomen And Pelvis Without Contrast Exam date and time: 11/22/2023 8:10 PM Age: 43 years old Clinical indication: Abdominal pain; Acute; Additional info: Acute abd pain, hematuria TECHNIQUE: Imaging protocol: Computed tomography of the abdomen and pelvis without contrast. Radiation optimization: All CT scans at this facility use at least one of these dose optimization techniques: automated exposure control; mA and/or kV adjustment per patient size (includes targeted exams where dose is matched to clinical indication); or iterative reconstruction. COMPARISON: CT HEART W CALCIUM SCORE 10/06/2023 8:11 AM FINDINGS: Lungs: Lung bases are clear. Pleural spaces: No pleural effusion. Heart: The visualized heart is normal. No pericardial effusion. Coronary arteries: Moderate to severe burden of coronary artery calcifications. Liver: The liver is enlarged. Gallbladder and bile ducts: The gallbladder is unremarkable. No biliary ductal dilatation. Pancreas: The pancreas is unremarkable. Spleen: The spleen is unremarkable. Adrenal glands: The adrenal glands are normal. Kidneys and ureters: The kidneys have non-contrast appearance without hydronephrosis. Simple appearing cysts within bilateral kidneys. The ureters have normal course and caliber without stone. Punctate nonobstructing renal stones in the bilateral kidneys. Stomach and bowel: The stomach is normal. The small and large bowel have normal course and caliber. No evidence of bowel obstruction. No pericolonic inflammatory stranding. Appendix: The appendix is absent. Intraperitoneal space: No significant peritoneal free fluid. No free peritoneal air. Vasculature: The vasculature demonstrates mild atherosclerotic calcification. No aortic aneurysm. Lymph nodes: No suspicious adenopathy by size criteria. Urinary bladder: The bladder is normal without focal wall thickening. Reproductive: Unremarkable as visualized. Bones/joints: No acute fracture. Soft tissues: Unremarkable. IMPRESSION: 1. No obstructive uropathy. 2. Nonobstructing bilateral renal stones. 3. Other findings as above. COMMENTS: Consistent with the [employer]'s Incidental Findings Committee white paper (J Am Daren Radiol 2018): Any incidental renal lesion less than 1 cm or classified as too small to characterize, or any incidental cystic renal lesion characterized as simple-appearing, is likely benign. No follow-up imaging is recommended for these lesions per consensus recommendations based on imaging criteria.
[2023-11-22] MEDS: ACETAMINOPHEN 1,000MG/100ML VIAL 1000 MG IV (20:02)
[2023-11-22] MEDS: LACTATED RINGERS 1000ML 1,000 ML 999 ML IV (20:02)
[2023-11-22 20:09] LABS: Basophils # 0.1 K/mm3 (0-0.2); Basophils % 0.9 % (0.1-2.0); Eosinophils # 0.3 K/mm3 (0.0-0.4); Hematocrit 50.4 % (42.0-52.0); Hemoglobin 16.5 g/dL (14.1-18.0); Lymphocytes # 2.2 K/mm3 (0.7-4.5); Lymphocytes % 23.7 % (10-50); Mean Corpuscular HGB Conc 32.8 g/dL (31.8-35.4); Mean Corpuscular Hemoglobin 32.9 pg (27.0-31.2); Mean Corpuscular Volume 100.5 fl (80-94); Mean Platelet Volume 7.3 fl (7.4-10.4); Monocytes # 0.6 K/mm3 (0.1-1.0); Monocytes % 6.4 % (1.7-9.3); Neutrophils # 6.1 K/mm3 (1.8-7.8); Neutrophils % 66.1 % (37.0-80.0); Platelet Count 300 K/mm3 (142-424); Red Blood Count 5.02 M/mm3 (4.60-6.20); Red Cell Distribution Width 13.7 % (11.5-17.5); White Blood Count 9.2 K/mm3 (4.8-10.8)
[2023-11-22 20:12] LABS: Chloride 105 mmol/L (98-107); Potassium 3.8 mmoL/L (3.5-5.1); Sodium 138 mmol/L (136-145)
[2023-11-22 20:14] LABS: Blood Urea Nitrogen 15 mg/dl (9-20); Creatinine Clearance Estimated 136 mL/min (50-200); Estimated Glomerular Filt Rate 91 ml/min (>60); GFR (African American) 110 ML/MIN (>60)
[2023-11-22 20:15] LABS: Microscopic, Urine URINE MICROSCOPIC (MICROSCOPIC)
[2023-11-22 20:15] LABS: Alanine Aminotransferase 30 U/L (12-78); Albumin Level 4.4 g/dl (3.5-5.0); Albumin/Globulin Ratio 1.4 (1.1-1.8); Alkaline Phosphatase 54 U/L (38-126); Anion Gap 10.8 mEq/L (5-15); Aspartate Amino Transferase 24 U/L (17-59); Bilirubin,Total 0.4 mg/dl (0.2-1.3); Calcium 9.4 mg/dl (8.4-10.2); Carbon Dioxide 26 mmol/L (22.0-30.0); Creatine Kinase 77 U/L (55-170); Globulin 3.1 g/dL (1.3-3.2); Glucose 118 mg/dl (74-100); Total Protein,Serum 7.5 g/dl (6.3-8.2)
[2023-11-22 20:17] LABS: INR 1.03 (0.9-1.1); Prothrombin Time 11.1 seconds (10.1-12.5)
--- NOTE | 2023-11-22 20:17 | PC.NURSE ---
Patient urinated without difficulty. Urine was leo with strong smell and several small clots floating. Patient denies dysuria.
[2023-11-22 20:18] LABS: Appearance,Urine CLOUDY (Clear); Blood, Urine 3+ (Negative); Color,Urine ORANGE (Yellow); Glucose,Urine (UA) Negative (Negative); Ketones,Urine Negative (Negative); Leukocyte Esterase,Urine Negative (Negative); Nitrate,Urine Negative (Negative); PH,Urine 6.5 (5.0-8.5); Protein,Urine TRACE (Negative); Specific Gravity, Urine 1.025 (1.005-1.030)
[2023-11-22 20:25] LABS: Bilirubin,Urine Negative (Negative)
[2023-11-22 20:29] LABS: Bacteria,Urine 1+ /lpf; RBC,Urine TNTC #/hpf (0-3)
[2023-11-22] MEDS: CEFDINIR 300MG CAPSULE 300 MG PO (21:06)
[2023-11-22 21:14] VITALS: BP 160/90; PULSE 69; RESP 18; TEMP 36.9; O2SAT 97
== END 2023-11-22 21:20 | disposition home or self-care (01) ==
PROVIDERS: Physician Assistant; Emergency Provider Emergency Medicine; PCP Family Medicine
DX: N39.0 Urinary tract infection, site not specified (principal); R31.9 Hematuria, unspecified; R10.30 Lower abdominal pain, unspecified; F17.210 Nicotine dependence, cigarettes, uncomplicated; E78.5 Hyperlipidemia, unspecified; I11.9 Hypertensive heart disease without heart failure; I25.119 Atherosclerotic heart disease of native coronary artery with unspecified angina pectoris
CPT/HCPCS: 74176; 80053; 81001; 82550; 85025; 85610; 96361; 96374; 99284; J0131; J7120

== ENCOUNTER 2024-01-05 01:45 | Emergency (ER) | payer OTHER, SELFPAY ==
[2024-01-05 01:47] VITALS: BP 187/118; PULSE 80; RESP 18; TEMP 36.8; O2SAT 97; BMI 32.1
--- NOTE | 2024-01-05 01:53 | ED_ITS ---
Discharge Plan Disposition Patient Disposition: Home, Self-Care Prescriptions Prescriptions: No Action isosorbide mononitrate 60 mg tablet extended release 24 hr 60 mg PO DAILY Qty: 30 4RF ranolazine 500 mg tablet extended release 12 hr 500 mg PO Q12H Qty: 60 2RF Rx Instructions: do not break, crush, or chew tablet(s) oxycodone-acetaminophen 5-325 mg tablet 1 tab PO DAILYP PRN (Reason: Pain) Qty: 30 0RF Rx Instructions: okay to fill today carvedilol 6.25 mg tablet 6.25 mg PO BID Qty: 60 5RF Rx Instructions: must administer with a meal/food amlodipine 5 mg tablet 5 mg PO DAILY Qty: 30 2RF atorvastatin 80 mg tablet 80 mg PO DAILY Patient Comments: TAKE ONE TABLET BY MOUTH DAILY aspirin 81 mg tablet,delayed release (DR/EC) 81 mg PO DAILY Patient Comments: TAKE ONE TABLET BY MOUTH DAILY albuterol sulfate [Ventolin HFA] 90 mcg/actuation HFA aerosol inhaler 1 - 2 inh INHALATION Q6HP PRN (Reason: Shortness Of Breath Or Wheezing) Patient Comments: INHALE 1 TO 2 PUFFS INTO THE LUNGS EVERY 6 HOURS NEEDED FOR WHEEZING. Referrals Follow up/Referrals: Yunior Ramirez MD [Primary Care Provider] - See instructions Activity Restrictions/Add. Instructions Additional Instructions/Restrictions: Please follow up for a formal ultrasound of the veins of the left lower extremity. Please return if you develop symptoms such as a cold foot, numbness, weakness, etc. Please return if you develop sudden chest pain or shortness of breath. Clinical Impressions Clinical Impression: Pain of left calf Discharge ED Provider: Thomas Sung General Adult HPI General Chief complaint: PAIN Stated complaint: possible blood clot, L leg pain Time Seen by Provider: 01/05/24 01:49 History of Present Illness HPI narrative: 43-year-old male with reported history of coronary artery disease with plan for coronary stent next week presents with relatively sudden onset left calf pain. He reports that he got up from the couch to walk across the room when he started to feel pain in his left upper calf. The pain migrated into his left posterior fossa and has been worsening. He denies any numbness tingling or weakness. He denies any history of prior blood clots, denies any history of arterial pathology in the lower extremities. He denies any current chest pain or shortness of breath. Related Data Home Medications Medication Instructions Recorded Confirmed albuterol sulfate 90 mcg/actuation 1 - 2 inh inhalation Q6HP PRN 11/22/23 01/03/24 aerosol inhaler (Ventolin HFA) Shortness Of Breath Or Wheezing aspirin 81 mg tablet,delayed 81 mg PO DAILY 11/22/23 01/03/24 release atorvastatin 80 mg tablet 80 mg PO DAILY 11/22/23 01/03/24 Previous Rx's Medication Instructions Recorded amlodipine 5 mg tablet 5 mg PO DAILY #30 tabs 12/07/23 carvedilol 6.25 mg tablet 6.25 mg PO BID #60 tabs 12/07/23 isosorbide mononitrate 60 mg 60 mg PO DAILY #30 tabs 12/19/23 tablet,extended release 24 hr ranolazine 500 mg tablet,extended 500 mg PO Q12H #60 tabs 12/19/23 release,12 hr oxycodone-acetaminophen 5 mg-325 1 tab PO DAILYP PRN Pain #30 tabs 01/03/24 mg tablet Allergies Allergy/AdvReac Type Severity Reaction Status Date / Time erythromycin base Allergy Severe Flushing Verified 01/03/24 10:12 [ERYTHROMYCIN BASE] [facility] Disclaimer: The information contained in this section may have been updated after the patient was seen, as this information can be updated by other users. Medical History Dizziness Dyspnea Typical angina Hyperlipidemia Hypertension CAD in [place] artery Abnormal findings on diagnostic imaging of heart and coronary circulation Elevated coronary artery calcium score Family history of early CAD Onychomycosis Tinea corporis Surgical History History of cardiac cath Hx of elbow surgery Hx of appendectomy Family History Other Cancer Diabetes FHx: mental illness Heart attack Social History Smoking Status: Current every day smoker tobacco type: cigarettes packs per day: 1 alcohol intake: never substance use type: denies use current occupational status: employed Travel in the last 8 weeks: None household members: family housing: house ROS Obtained: Yes All systems reviewed & no additional complaints except as documented Physical Exam General General appearance: alert and in no apparent distress Head Head exam: atraumatic and normocephalic Eye Eye exam: Present normal appearance, PERRL and EOMI ENT ENT exam: Present normal oropharynx and normal external ear exam Neck Neck exam: Present normal inspection and full ROM Chest Chest inspection: Present normal inspection and symmetric chest wall rise; Absent tenderness Respiratory Respiratory exam: Present normal lung sounds bilaterally; Absent respiratory distress Cardiovascular Cardiovascular exam: Present regular rate and normal rhythm Abdominal Exam Abdominal exam: Present soft; Absent distention, tenderness or guarding Extremities Exam Extremities exam: Present other (DP and PT pulses bounding bilaterally, normal capillary refill, normal sensation, mild to moderate tenderness in the left popliteal fossa and upper calf.) Back Exam Back exam: Present normal inspection; Absent tenderness Neurological Exam Neurological exam: Present alert and oriented X3; Absent motor sensory deficit Psychiatric Psychiatric exam: Present normal affect and normal mood Skin Skin exam: Present warm, dry and normal color Lymphatic Lymphatic Findings: no adenopathy Medical Decision Making Medical Records Medical records reviewed: Yes I reviewed the patient's medical records. Jaison Inquiry Pt receiving controlled substance: No Jaison was queried for this patient: No Vital Signs: 01/05/24 01:47 01/05/24 02:09 01/05/24 02:42 Temperature 98.2 F 98 F Temperature Source Oral Oral Pulse Rate 64 61 Pulse Rate [Left] 80 Respiratory Rate 18 20 20 Blood Pressure 133/118 H 135/95 H Blood Pressure [Right Arm] 187/118 H Blood Pressure Mean [Right Arm] 141 Blood Pressure Source Automatic Cuff Automatic Cuff Blood Pressure Source [Right Arm] Automatic Cuff Blood Pressure Position Supine Sitting Blood Pressure Position [Right Arm] Sitting 02 Sat by Pulse Oximetry 97 95 Oxygen Delivery Method Room Air Room Air Room Air Lab Data Lab results reviewed: Yes I reviewed the patient's lab results. Medical Decision Narrative: 43-year-old male with history of coronary artery disease presents with left calf/popliteal fossa pain after walking across the room. History was obtained via interactive discussion with patient, chart review. On arrival, patient is [afebrile, hemodynamically stable, satting appropriately, alert, oriented x4, GCS 15], moving all extremities spontaneously. Full physical exam performed and significant for normal arterial vascular exam of the lower extremity, tenderness of the left upper posterior calf and popliteal fossa, no calf swelling Differential includes but is not limited to DVT, PAD, acute limb ischemia, abscess, cellulitis, ligamentous/soft tissue injury. Bedside ultrasound was performed with me and showed no evidence of DVT. CTA was considered, but deemed unnecessary due to physical exam is not consistent with arterial insufficiency. Given patient history, exam and workup, patient's presentation most likely represents leg pain of uncertain etiology. No evidence of acute arterial or venous pathology. Radiographs were considered but deemed unnecessary as there is been no trauma. May represent early onset DVT, or soft tissue injury of the knee/calf. We considered starting patient on anticoagulation but given negative bedside ultrasound this was needed or necessary. Patient was discharged with outpatient order for repeat formal ultrasound. Patient discharged stable condition. Patient given strict return precautions including for signs of arterial ischemia or PE. Procedures Risk/Benefits of Procedure(s) Were Explained: Yes Limited Ultrasound Indication:: Limited DVT ultrasound Indication: Limited compression ultrasonography of the left upper extremity was performed to evaluate for non-compressibility of the deep veins in the patient. The ultrasound was performed with the following indications, as noted in the H&P: Left leg pain Identified structures: Left [common femoral vein, femoral vein, popliteal vein were examined.] Findings: Left CFV: Good compressibility Left FV good compressibility Left Popliteal vein: Good compressibility Impression: Normal, no left lower extremity DVT Images were saved to permanent archive The study was technically adequate [id number] This study was performed by me, and I personally interpreted all images/videos. Based on my clinical judgement, these images were adequate and did not necessitate further imaging. Critical Care Critical Care Time Critical Care Time: No
--- NOTE | 2024-01-05 02:08 | PC.NURSE ---
Dr. Sung at bedside to do bedside ultasound of right leg
[2024-01-05 02:09] VITALS: BP 133/118; PULSE 64; RESP 20; O2SAT 95
[2024-01-05 02:42] VITALS: BP 135/95; PULSE 61; RESP 20; TEMP 36.6; O2SAT 95
== END 2024-01-05 02:45 | disposition home or self-care (01) ==
PROVIDERS: Emergency Provider Emergency Medicine; PCP Family Medicine
DX: M79.662 Pain in left lower leg (principal); I11.9 Hypertensive heart disease without heart failure; I25.119 Atherosclerotic heart disease of native coronary artery with unspecified angina pectoris; F17.210 Nicotine dependence, cigarettes, uncomplicated; E78.5 Hyperlipidemia, unspecified
CPT/HCPCS: 99284

== ENCOUNTER 2024-02-08 11:15 | Outpatient (CLI) | payer OTHER, SELFPAY ==
[2024-02-08 20:15] LABS: Chol/HDL Ratio 3.5 (1-3.5); Cholesterol 118 mg/dl (140-200); HDL Cholesterol 34 mg/dl (40-60); Triglycerides 188 mg/dl (30-150); VLDL Cholesterol 38 mg/dL (0-40)
[2024-02-08 20:26] LABS: Direct LDL Cholesterol 61.45 mg/dL (100-129)
== END 2024-02-08 23:59 | disposition home or self-care (01) ==
LOC: LAB.DROPOF 02-09 11:16
PROVIDERS: PCP Family Medicine; Visit Provider Family Medicine
DX: E78.5 Hyperlipidemia, unspecified (principal)
CPT/HCPCS: 80061

== ENCOUNTER 2024-02-09 07:47 | Day surgery (SDC) | payer OTHER, SELFPAY ==
[2024-02-09] VITALS (9 sets, daily range): BP systolic 100–136; BP diastolic 58–81; PULSE 45–59; RESP 18–20; O2SAT 90–99; BMI 32.8
--- NOTE | 2024-02-09 07:08 | IR_ITS ---
APPROVED REPORT Patient Location: Outpatient [employer]: TRISTAN Cisneros RT (R) PROCEDURES Left heart catheterization Left ventriculogram Selective coronary angiogram FFR to the LAD FFR to the right coronary artery INDICATION Coronary artery disease, Recalcitrant angina pectoris, Angiographic ambiguity in the LAD and right coronary Informed consent was obtained prior to the procedure. COMPLICATIONS None Estimated Blood Loss: Less than 10 mls TECHNIQUE One percent lidocaine used to anesthetize the right anterior aspect of the wrist. The right radial artery was accessed via the Seldinger technique. A 6 Tong[place] sheath was placed in the right radial artery. 2.5 mg of Verapamil, 800 mcg of nitroglycerin, 1mg Lidocaine and 5000 U Heparin were given through the arterial sheath. The papa catheter was also used to perform left heart catheterization, left ventriculogram and selective coronary angiogram. At the end of the diagnostic angiogram the LAD was subjected to cath works FFR angiography which produced an FFR index of 0.84 in the right coronary artery was 0.82. At this point it was decided to convert the patient to invasive FFR angiography. Therapeutic heparin was administered giving a therapeutic ACT and a Choice PT extra-support wire was placed down the LAD followed by a nevus FFR catheter. With infusion of adenosine the FFR index dropped to 0.83. This did not meet hemodynamic significance therefore the apparatus was removed and the procedure was repeated in the right coronary artery which produced an FFR index of 0.92. Given neither of these were hemodynamically significant the apparatus was removed the sheath was removed good hemostasis was achieved using TR banding patient was transferred to the postop holding in stable condition ANGIOGRAPHIC RESULTS The left main artery Normal The left anterior descending artery Has proximal mostly eccentric 40% stenosis followed by additional mid vessel tandem 30% stenoses and additional distal diffuse 30% stenosis first diagonal artery has a proximal eccentric 30% stenosis The circumflex artery Is nondominant yet still large caliber vessel and has proximal 20% stenoses with 20 to 30% stenosis in the first obtuse marginal artery and 40% ostial stenosis in the true circumflex artery which is 2 mm in diameter followed by an additional eccentric 70% stenosis. There is a small amount of myocardium supplied distal to the 70% stenosis The right coronary artery Is a dominant vessel and has proximal multiple 30% stenosis with mid vessel 40 to 50% concentric stenosis and a distal 40% stenosis The THOMAS ventriculogram reveals Normal 65% The left ventricular end-diastolic pressure 15 to 20 mmHg IMPRESSION Coronary disease as described above with invasive FFR of 0.83 in the LAD and 0.92 in the right coronary artery PDERO II flow was present down the LAD which is consistent with endothelial dysfunction most likely precipitated and maintained by ongoing tobacco usage Moderate coronary artery disease Severe disease in the true circumflex artery which is distally supplied by a small amount of myocardium and not appropriate for stenting. Normal ejection fraction Borderline elevated LVEDP PLAN 1. Recommend avoidance of tobacco products which is a likely etiology for patient's endothelial dysfunction and angina 2. Aggressive risk factor modification with an LDL less than 55 3. Risk factor modification 4. Exercise weight loss 5. Sleep study if clinically appropriate Electronically signed by : Dennis Barnhart MD 02/09/2024 12:00:13
[2024-02-09 08:35] LABS: Basophils # 0.1 K/mm3 (0-0.2); Basophils % 0.6 % (0.1-2.0); Eosinophils # 0.3 K/mm3 (0.0-0.4); Eosinophils % 3.2 % (0.1-12.0); Hematocrit 49.9 % (42.0-52.0); Hemoglobin 16.4 g/dL (14.1-18.0); Lymphocytes # 1.8 K/mm3 (0.7-4.5); Lymphocytes % 21.2 % (10-50); Mean Corpuscular HGB Conc 32.9 g/dL (31.8-35.4); Mean Corpuscular Hemoglobin 33.2 pg (27.0-31.2); Mean Corpuscular Volume 100.7 fl (80-94); Mean Platelet Volume 7.7 fl (7.4-10.4); Monocytes # 0.5 K/mm3 (0.1-1.0); Monocytes % 5.6 % (1.7-9.3); Neutrophils % 69.4 % (37.0-80.0); Platelet Count 255 K/mm3 (142-424); Red Blood Count 4.95 M/mm3 (4.60-6.20); Red Cell Distribution Width 13.7 % (11.5-17.5); White Blood Count 8.6 K/mm3 (4.8-10.8)
[2024-02-09 08:49] LABS: Anion Gap 10.6 mEq/L (5-15); Blood Urea Nitrogen 12 mg/dl (9-20); Carbon Dioxide 21 mmol/L (22.0-30.0); Chloride 112 mmol/L (98-107); Creatinine Clearance Estimated 209 mL/min (50-200); Estimated Glomerular Filt Rate 146 ml/min (>60); GFR (African American) 176 ML/MIN (>60); Glucose 109 mg/dl (74-100); Potassium 5.6 mmoL/L (3.5-5.1); Sodium 138 mmol/L (136-145)
[2024-02-09] MEDS: diphenhydrAMINE 50MG/ML VIAL 50 MG IV (09:26)
[2024-02-09] MEDS: VERAPAMIL 2.5MG/ML 2ML VIAL 2.5 MG IV (09:26)
[2024-02-09] MEDS: LIDOCAINE 1% 10ML MDV 20 ML IJ (09:26)
[2024-02-09] MEDS: HEPARIN 1,000 UNITS/ML 10ML VIAL (CATH LAB) 10000 UNIT IV ×2 (09:26→10:13)
[2024-02-09] MEDS: HEPARIN 1,000 UNITS/500ML NS (CATH LAB) 3000 UNIT IV (09:26)
[2024-02-09] MEDS: 0.9 % SODIUM CHLORIDE 500 ML 25 ML IV (09:27)
[2024-02-09] MEDS: MIDAZOLAM HCL 1MG/1ML 5ML VIAL 1 MG IV (10:13)
[2024-02-09] MEDS: FENTANYL 100MCG/2ML VIAL 50 MCG IV (10:14)
[2024-02-09] MEDS: ADENOSINE IV (10:16)
[2024-02-09] MEDS: SODIUM CHLORIDE 0.9% IV (10:16)
[2024-02-09] MEDS: IOPAMIDOL-370 (76%);100ML BOTTLE 80 ML IV (12:47)
== END 2024-02-09 12:52 | disposition home or self-care (01) ==
PROVIDERS: PCP Family Medicine; Visit Provider Internal Medicine
DX: I25.118 Atherosclerotic heart disease of native coronary artery with other forms of angina pectoris (principal); I10 Essential (primary) hypertension; Z79.899 Other long term (current) drug therapy; Z82.49 Family history of ischemic heart disease and other diseases of the circulatory system; F17.210 Nicotine dependence, cigarettes, uncomplicated
CPT/HCPCS: 80048; 85025; 93458; 93571; 93572; 99152; 99153; C1725; C1769; J0153; J1200; J1644; J2250; J3010; Q9967

== ENCOUNTER 2024-03-06 12:53 | Outpatient (CLI) | payer OTHER, SELFPAY ==
--- NOTE | 2024-03-06 13:03 | CT_ITS ---
FINAL REPORT TECHNIQUE: Before and after the administration of intravenous contrast, axial images through the chest were performed by computed tomography. This study was performed with techniques to keep radiation doses as low as reasonably achievable, (ALARA). Individualized dose reduction techniques using automated exposure control or adjustment of mA and/or kV according to the patient's size were employed. CLINICAL HISTORY: 9mm nodule (Left) COMPARISON: 12/23/2022 FINDINGS: CT CHEST WITH AND WITHOUT CONTRAST: No significant hilar or mediastinal adenopathy is noted. No axillary adenopathy is present. Mild coronary artery calcifications are noted. There is a 9 mm nodule along the left major fissure best seen on image #35 of series 4, stable when compared to the prior exam. No new infiltrates or nodules are identified on today's examination. Note is made of a tiny right 3 mm renal stone, stable since the prior exam. IMPRESSION: 9 mm nodule, stable when compared to the prior exam of December 2022. Would recommend follow-up CT in 1 year to establish stability. No new nodules or masses, or pulmonary infiltrates, are present. Reviewed, Interpreted and Dictated by Tommy Jimenez MD Transcribed by Emerald Uriarte Authenticated and [facility]
[2024-03-06 13:20] LABS: Blood Urea Nitrogen 16 mg/dl (9-20); Estimated Glomerular Filt Rate 122 ml/min (>60); GFR (African American) 148 ML/MIN (>60)
[2024-03-06] MEDS: IOPAMIDOL-370 (76%);100ML BOTTLE 75 ML IV (13:57)
[2024-03-06] MEDS: SODIUM CHLORIDE 0.9% 10ML SYR (RAD ONLY) 10 ML IV (13:57)
== END 2024-03-06 23:59 | disposition home or self-care (01) ==
LOC: RAD 12:54
PROVIDERS: PCP Family Medicine; Visit Provider Family Medicine
DX: R07.9 Chest pain, unspecified (principal)
CPT/HCPCS: 36415; 71270; 82565; 84520; Q9967

== ENCOUNTER 2024-04-04 07:02 | Outpatient (CLI) | payer OTHER, SELFPAY ==
--- NOTE | 2024-04-04 07:06 | CT_ITS ---
FINAL REPORT TECHNIQUE: After the administration of intravenous contrast, axial images were obtained through the abdomen and pelvis by computed tomography. This study was performed with technique to keep radiation doses as low as reasonably achievable, (ALARA). Individualized dose reduction techniques using automated exposure control or adjustment of the MA and/or KV according to the patient's size were employed. CLINICAL HISTORY: perianal abscess COMPARISON: 11/22/2023 FINDINGS: Abdomen: The lung bases are clear. The liver is mildly fatty infiltrated. Gallbladder is present. The spleen is unremarkable. The adrenals are normal. The pancreas is unremarkable. There are small, bilateral benign-appearing renal cysts. There is a tiny nonobstructing stone in the right collecting system. The kidneys otherwise enhance appropriately. The aorta is normal in caliber. There is no free fluid or adenopathy. Pelvis: The appendix is not identified. The urinary bladder is incompletely distended. There is no free fluid or adenopathy. No localized inflammation or fluid collection is seen. IMPRESSION: Tiny nonobstructing renal stones. No localized inflammation or fluid collection identified. Reviewed, Interpreted and Dictated by Tommy Jimenez MD Transcribed by Marlin Dodd Authenticated and [facility]
[2024-04-04] MEDS: IOPAMIDOL-370 (76%);100ML BOTTLE 75 ML IV (07:28)
[2024-04-04] MEDS: SODIUM CHLORIDE 0.9% 10ML SYR (RAD ONLY) 10 ML IV (07:28)
== END 2024-04-04 23:59 | disposition home or self-care (01) ==
PROVIDERS: PCP Family Medicine; Visit Provider Nurse Practitioner
DX: K61.0 Anal abscess (principal)
CPT/HCPCS: 74177; Q9967

== ENCOUNTER 2024-04-15 09:47 | Outpatient (CLI) | payer OTHER, SELFPAY ==
[2024-04-15 18:35] LABS: Coronavirus 19, PCR Not Detected (NotDetected); Influenza A, PCR Not Detected (NotDetected); Influenza B, PCR Not Detected (NotDetected)
== END 2024-04-15 23:59 | disposition home or self-care (01) ==
LOC: LAB.DROPOF 04-16 13:02
PROVIDERS: PCP Nurse Practitioner; Visit Provider Nurse Practitioner
DX: J06.9 Acute upper respiratory infection, unspecified (principal); F17.210 Nicotine dependence, cigarettes, uncomplicated
CPT/HCPCS: 87636

== ENCOUNTER 2024-05-22 13:36 | Outpatient (CLI) | payer OTHER, SELFPAY | END 2024-05-22 23:59 | disposition home or self-care (01) | LOC: RT 13:36 | PROVIDERS: PCP Family Medicine; Visit Provider Nurse Practitioner Family | DX: R00.2 Palpitations (principal) | CPT/HCPCS: 93270; 93272 ==

== ENCOUNTER 2024-06-20 10:43 | Emergency (ER) | payer OTHER, SELFPAY ==
[2024-06-20 11:07] VITALS: BP 156/108; PULSE 82; RESP 18; TEMP 36.9; O2SAT 98; BMI 31.9
--- NOTE | 2024-06-20 11:42 | PC.NURSE ---
dr rodriguez at bedside
--- NOTE | 2024-06-20 11:46 | CT_ITS ---
FINAL REPORT TECHNIQUE: Thin section axial CT images with coronal and sagittal reformats were performed after the administration of IV contrast. This study was performed with techniques to keep radiation doses as low as reasonably achievable (ALARA). Individualized dose reduction techniques using automated exposure control or adjustment of mA and/or kV according to the patient''s size were employed. CLINICAL HISTORY: patient felt pop when coughing/neck chest pain FINDINGS: The nasopharynx is unremarkable. There is enlargement of the soft tissues of Waldeyer's ring favored to be infectious or inflammatory. There is no peritonsillar abscess. The epiglottis and larynx are unremarkable. Multiple small bilateral cervical lymph nodes and submandibular lymph nodes may be reactive. The salivary glands are unremarkable. The thyroid gland is homogeneous. There is no acute osseous abnormality. IMPRESSION: Enlargement of the soft tissues of Waldeyer's ring is favored to be infectious or inflammatory with presumed reactive lymph nodes in the neck. Otherwise, no acute abnormality. Reviewed, Interpreted and Dictated by Ciera Esocto MD Transcribed by Nona Armenta Authenticated and [facility]
--- NOTE | 2024-06-20 11:46 | CT_ITS ---
FINAL REPORT TECHNIQUE: Thin section axial images were obtained from the thoracic inlet through the upper abdomen after intravenous contrast injection. Reconstruction images were obtained from the axial data. Exam was performed using dose reduction technique. CLINICAL HISTORY: patient felt pop when coughing/neck chest pain FINDINGS: There is no mediastinal, hilar, or axillary lymphadenopathy. There is no pleural or pericardial effusion. New groundglass opacities in the left lower lobe which could represent pneumonia. 9 mm nodule along the left major fissure is unchanged and favored to represent an intrafissural lymph node. The lungs are otherwise clear. Limited evaluation of the upper abdomen is without acute abnormality. No acute osseous abnormality. IMPRESSION: New groundglass opacity in the left lower lobe could represent pneumonia. Stable 9 mm nodule. Reviewed, Interpreted and Dictated by Ciera Escoto MD Transcribed by Nona Armenta Authenticated and [facility]
--- NOTE | 2024-06-20 11:47 | HMH.EDGENADL ---
Discharge Plan Disposition Patient Disposition: Home, Self-Care Prescriptions Prescriptions: No Action dextromethorphan-guaifenesin 60-1,200 mg tablet extended release 12 hr 1 tab PO Q12H Qty: 60 0RF cefdinir 300 mg capsule 300 mg PO BID Qty: 20 0RF oxycodone-acetaminophen 5-325 mg tablet 1 tab PO DAILYP PRN (Reason: Pain) Qty: 30 0RF carvedilol 6.25 mg tablet 6.25 mg PO BID Qty: 60 5RF Rx Instructions: must administer with a meal/food ranolazine 1,000 mg tablet extended release 12 hr 1,000 mg PO BID Qty: 60 5RF nicotine [Nicoderm CQ] 21 mg/24 hr patch 24 hour 1 patch transdermal DAILY Qty: 14 0RF metoprolol succinate 50 mg tablet extended release 24 hr 50 mg PO ONCE Patient Comments: TAKE 1 TABLET BY MOUTH ONCE DAILY. amlodipine 5 mg tablet See Rx Instructions .ROUTE .COMPLEX Qty: 90 3RF Dose Instruction: Take 1 Tablet by mouth once daily. Rx Instructions: Take 1 Tablet by mouth once daily. isosorbide mononitrate 60 mg tablet extended release 24 hr 60 mg PO DAILY Qty: 30 4RF bupropion HCl [Wellbutrin SR] 150 mg tablet sustained-release 12 hr 150 mg PO BID 30 Days Qty: 60 2RF albuterol sulfate [Ventolin HFA] 90 mcg/actuation HFA aerosol inhaler 1 - 2 inh INHALATION Q6HP PRN (Reason: Shortness Of Breath Or Wheezing) Qty: 8.5 1RF atorvastatin 80 mg tablet 80 mg PO DAILY Patient Comments: TAKE ONE TABLET BY MOUTH DAILY aspirin 81 mg tablet,delayed release (DR/EC) 81 mg PO DAILY Patient Comments: TAKE ONE TABLET BY MOUTH DAILY Referrals Follow up/Referrals: Yunior Ramirez MD [Primary Care Provider] - See instructions Activity Restrictions/Add. Instructions Additional Instructions/Restrictions: No evidence of acute emergent medical condition such as any type of rupturing in your upper airways or neck that you are concerned about. You are positive for COVID-19 and there was some inflammatory changes in your lungs consistent with this but nothing to be concerned about please continue to take Tylenol and ibuprofen as needed for your symptoms and return with any significant worsening of your symptoms. Clinical Impressions Clinical Impression: Neck pain, Throat pain, COVID-19 Print Language Print Language: Latvian Discharge ED Provider: [facility] HPI General Chief complaint: PAIN Stated complaint: Tried to hold cough, felt pop in esophagus, pain Time Seen by Provider: 06/20/24 11:42 Mode of Arrival: Ambulatory Source of Information: Patient Limitations: No Limitations Description of Symptoms (Recalled from ER Triage Doc. by RN): throat pain. feels like he has ruptured something in his throat. 3 days ago History of Present Illness HPI narrative: Patient is a 44-year-old male presenting today with after like my throat ruptured. States that he had a cough and was trying to hold it in public and felt something pop or rupture his throat when he was coughing and has since that time had anterior chest pain at the junction of his neck and his sternum. Denies any difficulty swelling but does state that his voice is changed a little bit. Related Data Home Medications ?Medication ?Instructions ?Recorded ?Confirmed aspirin 81 mg tablet,delayed 81 mg PO DAILY 11/22/23 06/03/24 release atorvastatin 80 mg tablet 80 mg PO DAILY 11/22/23 06/03/24 metoprolol succinate 50 mg 50 mg PO ONCE 03/21/24 06/03/24 tablet,extended release 24 hr Previous Rx's ?Medication ?Instructions ?Recorded carvedilol 6.25 mg tablet 6.25 mg PO BID #60 tabs 12/07/23 ranolazine 1,000 mg 1,000 mg PO BID #60 tabs 01/24/24 tablet,extended release,12 hr nicotine 21 mg/24 hr daily 1 patch transdermal DAILY #14 ea 02/21/24 transdermal patch (Nicoderm CQ) amlodipine 5 mg tablet See Rx Instructions .Route 04/02/24 .COMPLEX #90 tabs cefdinir 300 mg capsule 300 mg PO BID #20 caps 04/15/24 dextromethorphan-guaifenesin ER 60 1 tab PO Q12H #60 tabs 04/15/24 mg-1,200 mg tab,extend release,12hr bupropion HCl 150 mg tablet,12 hr 150 mg PO BID 30 days #60 ea 06/03/24 sustained-release (Wellbutrin SR) isosorbide mononitrate 60 mg 60 mg PO DAILY #30 tabs 06/03/24 tablet,extended release 24 hr oxycodone-acetaminophen 5 mg-325 1 tab PO DAILYP PRN Pain #30 tabs 06/03/24 mg tablet albuterol sulfate 90 mcg/actuation 1 - 2 inh inhalation Q6HP PRN 06/13/24 aerosol inhaler (Ventolin HFA) Shortness Of Breath Or Wheezing #8.5 grams Allergies Allergy/AdvReac Type Severity Reaction Status Date / Time erythromycin base Allergy Severe Flushing Verified 06/03/24 11:46 (ERYTHROMYCIN BASE) [facility] Disclaimer: The information contained in this section may have been updated after the patient was seen, as this information can be updated by other users. Medical History Perianal abscess Smoker Endothelial dysfunction of coronary artery Dizziness Dyspnea Typical angina Hyperlipidemia Hypertension CAD in [place] artery Abnormal findings on diagnostic imaging of heart and coronary circulation Elevated coronary artery calcium score Family history of early CAD Onychomycosis Tinea corporis Surgical History History of cardiac cath Hx of elbow surgery Hx of appendectomy Family History Diabetes Heart attack FHx: mental illness Cancer Social History Smoking Status: Current every day smoker tobacco type: cigarettes packs per day: 1 alcohol intake: never substance use type: denies use current occupational status: employed Travel in the last 8 weeks: None household members: family housing: house Have you lived/traveled outside US in past 30 days?: No Contact w/someone who lives/traveled outside US past 30 days?: No Exposure to someone with infectious disease in past 14 days?: No Do you have a fever (greater than 100.4 F or 38 C)?: No Have you tested positive for COVID-19: No Exposed to someone with COVID-19 in past 14 days?: No Do you have a sore throat?: No Do you have a cough?: No Do you have any weakness?: No Do you have any diarrhea?: No Are you experiencing any unusual bleeding?: No Do you have any muscle aches/pain?: No Do you have any abdominal pain?: No Are you experiencing loss of taste or smell?: No Other Medical History Have you received the Flu Vaccine for this season: No Have you received the Pneumonia Vaccine: No ROS Obtained: Yes All systems reviewed & no additional complaints except as documented Physical Exam General General appearance: alert ENT ENT exam: Present normal exam and normal oropharynx Neck Neck exam: Present normal inspection and other (No soft tissue abnormalities or subcutaneous emphysema noted); Absent tenderness Chest Chest inspection: Present normal inspection; Absent symmetric chest wall rise Respiratory Respiratory exam: Present normal lung sounds bilaterally and respiratory distress Cardiovascular Cardiovascular exam: Present regular rate and normal rhythm Neurological Exam Neurological exam: Present alert and oriented X3 Medical Decision Making Medical Records Screening: Per USPSTF and CDC recommendations, given the prevalence of disease in our region, it is our hospital?s policy to screen for HIV and viral Hepatitis for all patients aged 18 and over and those with ongoing risk factors. Jaison Inquiry Pt receiving controlled substance: No Vital Signs: 06/20/24 11:07 Temperature 98.4 F Temperature Source Oral Pulse Rate [Right] 82 Respiratory Rate 18 Blood Pressure [Right Arm] 156/108 H Blood Pressure Mean [Right Arm] 124 02 Sat by Pulse Oximetry 98 Oxygen Delivery Method Room Air Lab Data Lab results reviewed: Yes I reviewed the patient's lab results. Lab Results 06/20/24 11:15: WBC 10.0, RBC 5.08, Hgb 16.3, Hct 47.1, MCV 92.7, MCH 32.1 H, MCHC 34.6, RDW 12.1, Plt Count 305, MPV 9.0, Neut % (Auto) 65.4, Lymph % (Auto) 25.1, [place] % (Auto) 6.5, Eos % (Auto) 2.4, Baso % (Auto) 0.3, Neut # (Auto) 6.6, Lymph # (Auto) 2.5, [place] # (Auto) 0.7, Eos # (Auto) 0.2, Baso # (Auto) 0.0, Sodium 140, Potassium 4.3, Chloride 106, Carbon Dioxide 23, Anion Gap 15.3 H, BUN 10, Creatinine 0.80, Estimated Creat Clear 155, Estimated GFR 104, Est GFR ( Amer) 126, Glucose 106 H, Calcium 9.5, Total Bilirubin 0.5, AST 62 H, ALT 68, Alkaline Phosphatase 61, Total Protein 8.1, Albumin 4.7, Globulin 3.4 H, Albumin/Globulin Ratio 1.4, HIV Ag/Ab Combo Qual Negative 06/20/24 12:06: SARS-CoV-2 (PCR) Detected A, Influenza A Untype (PCR) Not detected, Influenza Type B (PCR) Not detected, Group A Strep Rapid Negative 06/20/24 11:15 06/20/24 11:15 Orders (Tests/Meds): ED MEDICATIONS Discontinued Medications Generic Name Dose Route Start Last Admin Trade Name Loreta PRN Reason Stop Dose Admin Dexamethasone Sodium Phosphate 10 mg 06/20/24 11:46 06/20/24 11:56 Dexamethasone 4mg/Ml 1ml Vial IV 06/20/24 11:47 10 mg ONCE ONE Administration Sodium Chloride 1,000 mls @ 999 mls/hr 06/20/24 12:00 06/20/24 11:57 Sod Chlor 0.9% 1000ml Bag IV 06/20/24 13:00 999 mls/hr .Q1H1M RAY Administration Iopamidol 75 ml 06/20/24 12:39 06/20/24 12:41 Iopamidol-370 (76%);100ml Bottle IV 06/20/24 12:40 75 ml ONCE ONE Administration Ketorolac Tromethamine 15 mg 06/20/24 11:46 06/20/24 11:57 Ketorolac 30mg/Ml Vial IV 06/20/24 11:47 15 mg ONCE ONE Administration Sodium Chloride 10 ml 06/20/24 12:39 06/20/24 12:41 Sodium Chloride 0.9% 10ml Syr (Rad Only) IV 06/20/24 12:40 10 ml ONCE ONE Administration ORDERS Category Date Time Status CT chest w con Stat Cat Scan 06/20/24 11:[address] soft tissue neck w con Stat Cat Scan 06/20/24 11:46 Completed CBC w/Auto Diff [Complete Blood Count Auto Diff] Stat Lab 06/20/24 11:15 Completed CMP [Comprehensive Metabolic Panel] Stat Lab 06/20/24 11:15 Completed HIV Combo Stat Lab 06/20/24 11:15 Completed Hep C Ab with Reflex to RNA Stat Lab 06/20/24 11:15 Received Rapid PCR Covid and Flu A/B Stat Lab 06/20/24 12:06 Completed Strep Scrn Group A (Rapid) Stat Lab 06/20/24 12:06 Completed Strep Screen Confirmation Stat Micro 06/20/24 12:06 Received Medical Decision Narrative: 44-year-old with above history and physical does have a little bit of hoarse voice and his history is concerning for possible rupture of soft tissue structures such as esophagus or larynx. States he was coughing with a forced obstruction and subsequently felt a pop in his neck region will get a CT scan of his neck and chest for further evaluation. Do not appreciate any subcutaneous emphysema. But will make sure is no significant soft tissue swelling or involvement of the soft tissues. Toradol and dexamethasone have been administered in addition to IV fluids will reassess after his CT scans are performed. Swabs were also performed for strep and COVID and flu. Reassessment 2:29 PM patient very stable. CT scans performed which I personally interpreted shows no evidence of any type of soft tissue structural abnormality or rupture of the esophagus or tracheal area or any subcutaneous emphysema. There is some lymphadenopathy as well as some groundglass opacities in the left lung consistent with COVID-19 which she was positive for. Overall this is all consistent with a viral syndrome. No evidence of a structural abnormalities. He is not a candidate for Paxlovid. Supportive care discussed return precautions emphasized patient discharged in stable condition. Critical Care Critical Care Time Critical Care Time: No
[2024-06-20 11:52] LABS: Basophils % 0.3 % (0.1-2.0); Eosinophils # 0.2 K/mm3 (0.0-0.4); Eosinophils % 2.4 % (0.1-12.0); Hematocrit 47.1 % (42.0-52.0); Hemoglobin 16.3 g/dL (14.1-18.0); Lymphocytes # 2.5 K/mm3 (0.7-4.5); Lymphocytes % 25.1 % (10-50); Mean Corpuscular HGB Conc 34.6 g/dL (31.8-35.4); Mean Corpuscular Hemoglobin 32.1 pg (27.0-31.2); Mean Corpuscular Volume 92.7 fl (80-94); Monocytes # 0.7 K/mm3 (0.1-1.0); Monocytes % 6.5 % (1.7-9.3); Neutrophils # 6.6 K/mm3 (1.8-7.8); Neutrophils % 65.4 % (37.0-80.0); Platelet Count 305 K/mm3 (142-424); Red Blood Count 5.08 M/mm3 (4.60-6.20); Red Cell Distribution Width 12.1 % (11.5-17.5)
[2024-06-20 11:53] LABS: Albumin Level 4.7 g/dl (3.5-5.0); Chloride 106 mmol/L (98-107); Potassium 4.3 mmoL/L (3.5-5.1); Sodium 140 mmol/L (136-145)
[2024-06-20 11:56] LABS: Alanine Aminotransferase 68 U/L (12-78); Albumin/Globulin Ratio 1.4 (1.1-1.8); Alkaline Phosphatase 61 U/L (38-126); Anion Gap 15.3 mEq/L (5-15); Aspartate Amino Transferase 62 U/L (17-59); Bilirubin,Total 0.5 mg/dl (0.2-1.3); Blood Urea Nitrogen 10 mg/dl (9-20); Carbon Dioxide 23 mmol/L (22.0-30.0); Creatinine Clearance Estimated 155 mL/min (50-200); Estimated Glomerular Filt Rate 104 ml/min (>60); GFR (African American) 126 ML/MIN (>60); Globulin 3.4 g/dL (1.3-3.2); Total Protein,Serum 8.1 g/dl (6.3-8.2)
[2024-06-20] MEDS: DEXAMETHASONE 4MG/ML 1ML VIAL 10 MG IV (11:56)
[2024-06-20 11:57] LABS: Calcium 9.5 mg/dl (8.4-10.2); Glucose 106 mg/dl (74-100)
[2024-06-20] MEDS: KETOROLAC 30MG/ML VIAL 15 MG IV (11:57)
[2024-06-20] MEDS: 0.9 % SODIUM CHLORIDE 1000ML 1,000 ML 999 ML IV (11:57)
[2024-06-20 12:11] LABS: Influenza A, PCR Not Detected (NotDetected); Influenza B, PCR Not Detected (NotDetected)
[2024-06-20 12:24] LABS: Strep Scrn Group A (Rapid) Negative (Negative)
[2024-06-20] MEDS: SODIUM CHLORIDE 0.9% 10ML SYR (RAD ONLY) 10 ML IV (12:41)
[2024-06-20] MEDS: IOPAMIDOL-370 (76%);100ML BOTTLE 75 ML IV (12:41)
[2024-06-20 13:10] LABS: Coronavirus 19, PCR Detected (NotDetected)
[2024-06-20 13:39] LABS: HIV Combo NEGATIVE (Negative)
[2024-06-20 14:25] VITALS: BP 152/78; PULSE 72; RESP 18; TEMP 37; O2SAT 97
[2024-06-21 06:18] LABS: HCV Ab Non Reactive (Non Reactive)
== END 2024-06-20 14:25 | disposition home or self-care (01) ==
LOC: UTC 10:48 → ER 10:48
PROVIDERS: Emergency Provider Student in an Organized Health Care Education/Training Program; PCP Family Medicine
DX: U07.1 COVID-19 (principal); R05.9 Cough, unspecified; R07.0 Pain in throat; R07.89 Other chest pain; M54.2 Cervicalgia
CPT/HCPCS: 70491; 71260; 80053; 85025; 86803; 87389; 87430; 87636; 96361; 96374; 96375; 99285; J1100; J1885; J7030; Q9967

== ENCOUNTER 2024-08-23 16:47 | Outpatient (CLI) | payer OTHER, SELFPAY ==
--- NOTE | 2024-08-23 16:52 | MR_ITS ---
PROCEDURE INFORMATION: Exam: MR Right Upper Extremity Joint Without Contrast; Shoulder Exam date and time: 08/23/2024 5:28 PM Age: 44 years old Clinical indication: Pain; Shoulder; Right; Additional info: Right shoulder pain TECHNIQUE: Imaging protocol: Magnetic resonance imaging of the right upper extremity without contrast. Exam focused on the shoulder. COMPARISON: CR XR SHOULDER RT MIN 2V 09/19/2023 11:53 AM FINDINGS: Bones/joints: Bone marrow edema and questionable cortical erosion in the distal clavicle. No other bone abnormalities. Articular cartilage normal. No joint effusion. Glenoid labrum: Suspected posterior tear and 4 mm paralabral cyst. Supraspinatus tendon: No evidence of tear. Infraspinatus tendon: No evidence of tear. Subscapularis tendon: Tendinosis or partial intrasubstance tear. Teres minor tendon: No evidence of tear. Tendon of biceps brachii: No evidence of tear. Glenohumeral ligaments: No evidence of tear. Soft tissues: Mild synovial thickening and edema about the acromioclavicular joint with mild bone edema and questionable erosion in the distal clavicle. No masses. IMPRESSION: 1. Tendinosis or partial intrasubstance tear in the subscapularis tendon of the right shoulder. 2. Suspected posterior labral tear and paralabral cyst. 3. Arthritis and bone marrow edema in the distal right clavicle with questionable bone erosion. Consider rheumatoid arthritis.
== END 2024-08-23 23:59 | disposition home or self-care (01) ==
LOC: RAD 16:48
PROVIDERS: PCP Family Medicine; Visit Provider Orthopaedic Surgery
DX: M25.511 Pain in right shoulder (principal)
CPT/HCPCS: 73221

== ENCOUNTER 2024-11-04 15:40 | Outpatient (CLI) | payer OTHER, SELFPAY ==
[2024-11-04 18:25] LABS: Microscopic, Urine URINE MICROSCOPIC (MICROSCOPIC)
[2024-11-04 18:50] LABS: Appearance,Urine CLEAR (Clear); Bilirubin,Urine Negative (Negative); Blood, Urine Negative (Negative); Color,Urine YELLOW (Yellow); Glucose,Urine (UA) Negative (Negative); Ketones,Urine Negative (Negative); Leukocyte Esterase,Urine Negative (Negative); Nitrate,Urine Negative (Negative); Protein,Urine Negative (Negative)
[2024-11-04 18:58] LABS: Creatinine,Urine Random 133 mg/dL (Not Estab.)
[2024-11-04 19:02] LABS: Microalbumin < 6.000 mg/L (0-16.7)
[2024-11-04 19:30] LABS: Amorphous Sediment,Urine 3+ /lpf; Bacteria,Urine Trace /lpf; WBC,Urine Occasional #/hpf (0-3)
[2024-11-04 19:57] LABS: Hemoglobin A1C 5.6 % (4.0-6.0)
[2024-11-04 20:40] LABS: Albumin Level 4.2 g/dl (3.5-5.0); Chloride 109 mmol/L (98-107); Sodium 139 mmol/L (136-145)
[2024-11-04 20:42] LABS: Blood Urea Nitrogen 12 mg/dl (9-20); Estimated Glomerular Filt Rate 91 ml/min (>60); GFR (African American) 110 ML/MIN (>60)
[2024-11-04 20:43] LABS: Alanine Aminotransferase 20 U/L (12-78); Albumin/Globulin Ratio 1.6 (1.1-1.8); Alkaline Phosphatase 62 U/L (38-126); Aspartate Amino Transferase 21 U/L (17-59); Bilirubin,Total 0.2 mg/dl (0.2-1.3); Calcium 9.1 mg/dl (8.4-10.2); Carbon Dioxide 27 mmol/L (22.0-30.0); Globulin 2.6 g/dL (1.3-3.2); Glucose 93 mg/dl (74-100); Total Protein,Serum 6.8 g/dl (6.3-8.2)
[2024-11-04 21:05] LABS: Thyroid Stimulating Hormone 3.03 uIU/mL (0.465-4.68)
== END 2024-11-04 23:59 | disposition home or self-care (01) ==
LOC: LAB.DROPOF 21:46
PROVIDERS: PCP Nurse Practitioner; Visit Provider Nurse Practitioner
DX: R35.1 Nocturia (principal); R31.9 Hematuria, unspecified; I25.10 Atherosclerotic heart disease of native coronary artery without angina pectoris; I10 Essential (primary) hypertension
CPT/HCPCS: 80053; 81001; 82043; 82570; 83036; 84443

== ENCOUNTER 2024-11-18 16:24 | Outpatient (CLI) | payer OTHER, SELFPAY ==
[2024-11-18 16:02] LABS: Microscopic, Urine URINE MICROSCOPIC (MICROSCOPIC)
[2024-11-18 16:22] LABS: Appearance,Urine CLEAR (Clear); Bilirubin,Urine Negative (Negative); Blood, Urine Negative (Negative); Color,Urine YELLOW (Yellow); Glucose,Urine (UA) Negative (Negative); Ketones,Urine Negative (Negative); Leukocyte Esterase,Urine Negative (Negative); Nitrate,Urine Negative (Negative); Protein,Urine Negative (Negative); Specific Gravity, Urine 1.015 (1.005-1.030); Urobilinogen,Urine 0.2 EU/dl (0.2)
[2024-11-18 17:14] LABS: Amorphous Sediment,Urine 1+ /lpf; Bacteria,Urine 1+ /lpf; Squamous Epithelial Cell,Urine Occasional #/hpf (0-5); WBC,Urine Occasional #/hpf (0-3)
== END 2024-11-18 23:59 | disposition home or self-care (01) ==
LOC: LAB.DROPOF 16:24
PROVIDERS: PCP Urology; Visit Provider Urology
DX: R31.9 Hematuria, unspecified (principal); Z80.52 Family history of malignant neoplasm of bladder
CPT/HCPCS: 81001

== ENCOUNTER 2024-12-04 00:39 | Outpatient (CLI) | payer OTHER, SELFPAY ==
--- OUTSIDE RECORDS SUMMARY | 2024-12-04 00:42 | XMS_ITS | Clinical Summary ---
Author Organization [facility] Address [address] [place] [address] Phone Care Team Providers Care Poultry Husbandman Name Role Phone Kyle Tao MD Primary Care Provider [phone] Allergies Active Allergy Reactions Criticality Noted Date Comments Erythromycin Other (See Comments) Low 03/02/2010 As a child Medications meloxicam (MOBIC) 15 mg Oral TabletIndications:Acu te pain of right shoulder,Arthritis of right acromioclavicular joint Take 1 Tablet by mouth daily. 30 Tablet 2 01/03/20 23 Active VENTOLIN HFA 90 mcg/actuation Inhl HFA Aerosol InhalerIndications:Mo derate persistent asthma without complication INHALE 1 TO 2 PUFFS INTO THE LUNGS EVERY 6 HOURS NEEDED FOR WHEEZING 18 g 2 05/29/20 23 Active Active Problems Patient Care Coordination No te Formatting of this note migh t be different from the original. csta 01/18/12 opi 01/18/12 uds 01/18/12, 7-2012 dexter 01/18/12, 03/04/13 [id number] manual process, 05-01-13 Problem Noted Date Diagnosed Date Mixed hyperlipidemia 10/18/2013 Tobacco use 05/22/2013 Chest pain at rest 05/22/2013 Family history of premature CAD 05/22/2013 Panic attacks 02/01/2013 BRIANA (generalized anxiety disorder) 02/01/2013 Primary hypertension 02/01/2013 DDD (degenerative disc disease) 08/03/2009 Anxiety 08/03/2009 Resolved Problems Problem Noted Date Diagnosed Date Resolved Date Chest pain 10/18/2013 01/19/2021 Neck pain 12/09/2010 01/19/2021 Chronic back pain 08/03/2009 01/19/2021 Immunizations Immunization Administration Dates Next Due Pneumococcal Polysaccharide 23 Valent 10/18/2013 Tdap 06/21/2021 Surgical History Surgery Date Site/Laterality Comments ELBOW SURGERY 02/17/2007 - 03/18/2007 BURN TREATMENT 06/19/2009 - 06/18/2010 bilat hands APPENDECTOMY CARPAL TUNNEL RELEASE ELBOW SURGERY tendon NASAL SEPTUM SURGERY Medical History Medical History Date Comments Anxiety Back pain Migraine Hyperlipidemia Hypertension Family History Medical History Relation Name Comments Diabetes Father Heart Disease Father , [place] High Blood Pressure Father Other Father PVD Heart Disease Mother [place] Heart Disease Paternal Uncle , [place] High Blood Pressure Paternal Uncle Heart Disease Sister , [place] High Blood Pressure Sister Relation Name Status Comments Father Mother Alive Paternal Uncle Sister Social History Tobacco Use Types Packs/Day Years Used Date Smoking Tobacco: Every Day Cigarettes 1 32.5 Started: 1992 Smokeless Tobacco: Never Tobacco Cessation:Ready to Q uit: No; Counseling Given: No Alcohol Use Standard Drinks/Week Comments No 0 (1 standard drink = 0.6 oz pur e alcohol) PHQ-2 Answer Date Recorded PHQ-2 Total Score 0 11/04/2021 Sexually Active Control Partners Comments Yes Female Sex and Gender Information Value Date Recorded Sex Assigned at Not on file Legal Sex Male 11:13 PM EDT Gender Identity Not on file Sexual Orientation Not on file Obstetrics History Last Filed Vital Signs Vital Sign Reading Time Taken Comments Blood Pressure 140/90 12/14/2021 1:38 PM EDT Pulse 60 12/14/2021 1:38 PM EDT Temperature 36.4 C (97.6 F) 11/04/2021 7:46 AM EDT Respiratory Rate 20 11/04/2021 7:46 AM EDT Oxygen Saturation 98% 12/14/2021 1:38 PM EDT RA@REST Inhaled Oxygen Concentration - - Weight 96.6 kg (213 lb) 12/14/2021 1:38 PM EDT Height 170.2 cm (5' 7 ) 12/14/2021 1:38 PM EDT Body Mass Index 33.36 12/14/2021 1:38 PM EDT Plan of Treatment Health Maintenance Due Date Last Done Comments Annual Wellness Exam 1981 Hepatitis B Vaccine (1 of 3 - 19+ 3-dose series) 1997 Pneumococcal Vaccine 0-49 (2 of 2 - PCV) 10/18/2014 10/18/2013 Cologuard 2023 Colon Cancer Screening 2023 Colonoscopy 2023 FIT 2023 Sigmoidoscopy 2023 Virtual Colonography 2023 COVID-19 Vaccine (1 - 2023-2 5 season) 2024 Influenza Vaccine (Season Ended) 2025 DTaP/TDaP/Td (2 - Td or Tdap) 06/21/2031 06/21/2021 Meningococcal B Vaccine Aged Out No l onger eligible based on patient's age to complete this topic Goals Goal Patient Goal Type Associated Problems Recent Progress Patient-Stated? Author Blood Pressure < 140/90 Blood Pressure 140/90(2021 1:38 PM EDT) No Ananda Arredondo LPN Maintain a healthy diet, exercise regularly and maintain an ideal body weight General No Ananda Arredondo LPN Stay Tobacco Free Lifestyle Ananda Biggs LPN [facility] [place] [address] [facility] [address] [facility] [address] Care Teams Poultry Husbandman Relationship Specialty Start Date End Date Kyle Tao MD [id number] [facility] [place] [address] PCP - General Internal Medicine 01/02/23
--- OUTSIDE RECORDS SUMMARY | 2024-12-04 00:42 | XMS_ITS | Clinical Summary ---
Author Organization [facility] Address [address] [place] [address] Phone Care Team Providers Care Scuba Instructor Name Role Phone Pat YOST, Yunior Wild [phone] Conditions or Problems Problem Name Problem Code Onset Date Status Entry Date Provider Comment Standard Description Annotate HERNIATED LUMBAR DISC 416177391 (SNOMED CT) Active Delisa Brendon LA Prolapsed lumbar intervertebral disc Medications Medication Instructions Start Date Stop Date Generic Name NDC Provider ULTRAM ER 200 MG ORAL TABLET EXTENDED RELEASE 24 HOUR 1 po bid TRAMADOL HCL [id number] Yunior Stewart MD BACLOFEN 10 MG TABS 1 po tid BACLOFEN [id number] Yunior Stewart MD Medications Administered No information available. Allergies, Adverse Reactions, Alerts Observed no known allergies at Results No information available. Plan of Care Type Date Detail Pending order VALENTINO Series=1.3 I njections Procedures No information available. Vital Signs Date Name Value Unit Description BP Diastolic 90 mm[Hg] blood pressu re, diastolic BP Systolic 140 mm[Hg] blood pressur e, systolic Height 69 [in_us] height E&M Weight Measured 210 [lb_av] weight E& M Weight Measured 210 [lb_av] weight E& M Immunizations No information available. Advance Directives No information available.
[2024-12-05 12:14] LABS: PSA, Free 0.07 ng/mL; Prostate Specific Ag 0.2 ng/mL (0.0-4.0)
== END 2024-12-04 23:59 | disposition home or self-care (01) ==
LOC: LAB.DROPOF 00:40
PROVIDERS: PCP Urology; Visit Provider Urology
DX: R31.9 Hematuria, unspecified (principal); Z80.52 Family history of malignant neoplasm of bladder
CPT/HCPCS: 84153; 84154

== ENCOUNTER 2024-12-16 10:55 | Outpatient (CLI) | payer OTHER, SELFPAY ==
[2024-12-16 18:36] LABS: Microscopic, Urine URINE MICROSCOPIC (MICROSCOPIC)
[2024-12-16 18:52] LABS: Appearance,Urine CLEAR (Clear); Bilirubin,Urine Negative (Negative); Blood, Urine Negative (Negative); Color,Urine YELLOW (Yellow); Glucose,Urine (UA) Negative (Negative); Ketones,Urine Negative (Negative); Leukocyte Esterase,Urine Negative (Negative); Nitrate,Urine Negative (Negative); Protein,Urine Negative (Negative); Specific Gravity, Urine 1.025 (1.005-1.030); Urobilinogen,Urine 0.2 EU/dl (0.2)
[2024-12-16 19:01] LABS: Basophils % 0.5 % (0.1-2.0); Eosinophils # 0.2 Kmm3 (0.0-0.4); Eosinophils % 3.2 % (0.1-12.0); Hematocrit 47.2 % (42.0-52.0); Hemoglobin 16.5 g/dL (14.1-18.0); Immature Granulocytes # 0.02 10^3uL; Immature Granulocytes % 0.3 %; Lymphocytes # 2.2 K/mm3 (0.7-4.5); Lymphocytes % 28.5 % (10-50); Mean Corpuscular Hemoglobin 32.7 pg (27.0-31.2); Mean Corpuscular Volume 93.7 fl (80-94); Mean Platelet Volume 9.3 fl (7.4-10.4); Monocytes # 0.6 K/mm3 (0.1-1.0); Monocytes % 8.5 % (1.7-9.3); Neutrophils # 4.5 K/mm3 (1.8-7.8); Nucleated Red Blood Cells # 0 10^3/uL; Nucleated Red Blood Cells % 0 %; Platelet Count 320 K/mm3 (142-424); Red Blood Count 5.04 M/mm3 (4.60-6.20); Red Cell Distribution Width 12.5 % (11.5-17.5); Red Cell Distribution Width-SD 42.9 fL; White Blood Count 7.6 K/mm3 (4.8-10.8)
[2024-12-16 19:32] LABS: Bacteria,Urine Trace /lpf; WBC,Urine Occasional #/hpf (0-3)
[2024-12-16 19:36] LABS: Erythrocyte Sedimentation Rate 5 mm/hr (0-15)
[2024-12-16 19:45] LABS: Albumin Level 4.7 g/dl (3.5-5.0); Chloride 102 mmol/L (98-107); Potassium 4.9 mmoL/L (3.5-5.1); Sodium 138 mmol/L (136-145)
[2024-12-16 19:48] LABS: Alanine Aminotransferase 19 U/L (12-78); Albumin/Globulin Ratio 1.6 (1.1-1.8); Alkaline Phosphatase 59 U/L (38-126); Anion Gap 15.9 mEq/L (5-15); Aspartate Amino Transferase 23 U/L (17-59); Bilirubin,Total 0.4 mg/dl (0.2-1.3); Blood Urea Nitrogen 14 mg/dl (9-20); Calcium 9.1 mg/dl (8.4-10.2); Carbon Dioxide 25 mmol/L (22.0-30.0); Estimated Glomerular Filt Rate 104 ml/min (>60); GFR (African American) 126 ML/MIN (>60); Glucose 87 mg/dl (74-100); Total Protein,Serum 7.7 g/dl (6.3-8.2)
[2024-12-16 19:54] LABS: C-Reactive Protein 2.9 mg/L (0-4)
[2024-12-16 19:59] LABS: NT Pro Brain Natriuretic Pep. < 20.0 pg/mL (0-125)
[2024-12-16 20:00] LABS: Uric Acid 6.8 mg/dl (3.5-8.5)
[2024-12-18 03:38] LABS: RA Latex Turbid. 43.2 IU/mL (<14.0)
[2024-12-18 10:12] LABS: Anti-Centromere B Antibodies <0.2 AI (0.0-0.9); Anti-DNA (DS) Ab Qn 1 IU/mL (0-9); Anti-Jo-1 <0.2 AI (0.0-0.9); Anti-Smith Antibody <0.2 AI (0.0-0.9); Antichromatin Antibodies <0.2 AI (0.0-0.9); Antiscleroderma-70 Antibodies <0.2 AI (0.0-0.9); RNP Antibodies <0.2 AI (0.0-0.9); Sjogren's Anti-SS-A <0.2 AI (0.0-0.9); Sjogren's Anti-SS-B <0.2 AI (0.0-0.9)
--- OUTSIDE RECORDS SUMMARY | 2024-12-18 10:59 | XMS_ITS | Clinical Summary ---
Author Organization [facility] Address [address] [place] [address] Phone Care Team Providers Care Insulation Cupola Operator Name Role Phone Kyle Tao MD Primary Care Provider [phone] Allergies Active Allergy Reactions Criticality Noted Date [...] 01/18/12 uds 01/18/12, 7-2012 dexter 01/18/12, 03/04/13 [id number] manual process, 05-01-13 Problem Noted Date Diagnosed [...] Comments Diabetes Father Heart Disease Father , [place] High Blood Pressure Father Other Father PVD Heart Disease Mother [place] Heart Disease Paternal Uncle , [place] High Blood Pressure Paternal Uncle Heart Disease Sister , [place] High Blood Pressure Sister Relation Name Status [...] - 2023-2 5 season) 2024 Influenza Vaccine (#1) 2025 DTaP/TDaP/Td (2 - Td or Tdap) [...] Tobacco Free Lifestyle Ananda Biggs LPN Insurance [facility] [place] [address] [facility] [address] [facility] [address] Care Teams Insulation Cupola Operator Relationship Specialty Start Date End Date Kyle Tao MD [id number] [place] [address] PCP - General Internal Medicine 01/02/23
[2024-12-18 14:37] LABS: Antinuclear Antibodies, IFA Negative (.)
== END 2024-12-16 23:59 | disposition home or self-care (01) ==
LOC: LAB.DROPOF 12-18 10:56
PROVIDERS: PCP Nurse Practitioner; Visit Provider Nurse Practitioner
DX: R60.0 Localized edema (principal)
CPT/HCPCS: 80053; 81001; 83880; 84550; 85025; 85651; 86038; 86140; 86225; 86235; 86431

== ENCOUNTER 2025-05-26 16:23 | Outpatient (CLI) | payer OTHER, SELFPAY ==
[2025-05-26 19:09] LABS: Hematocrit 46.6 % (42.0-52.0); Hemoglobin 16.4 g/dL (14.1-18.0); Immature Granulocytes % 0.3 %; Mean Corpuscular HGB Conc 35.2 g/dL (31.8-35.4); Mean Corpuscular Hemoglobin 33.2 pg (27.0-31.2); Mean Corpuscular Volume 94.3 fl (80-94); Nucleated Red Blood Cells % 0 %; Platelet Count 330 K/mm3 (142-424); Red Blood Count 4.94 M/mm3 (4.60-6.20); Red Cell Distribution Width-SD 44.4 fL; White Blood Count 9.4 K/mm3 (4.8-10.8)
[2025-05-26 19:34] LABS: Alanine Aminotransferase 19 U/L (12-78); Albumin Level 4.7 g/dl (3.5-5.0); Albumin/Globulin Ratio 1.4 (1.1-1.8); Alkaline Phosphatase 68 U/L (38-126); Anion Gap 13.4 mEq/L (5-15); Aspartate Amino Transferase 23 U/L (17-59); Bilirubin,Total 0.5 mg/dl (0.2-1.3); Blood Urea Nitrogen 9 mg/dl (9-20); Calcium 9.5 mg/dl (8.4-10.2); Carbon Dioxide 26 mmol/L (22.0-30.0); Chloride 103 mmol/L (98-107); Creatinine,Serum 0.80 mg/dl (0.66-1.25); Estimated Glomerular Filt Rate 104 ml/min (>60); GFR (African American) 125 ML/MIN (>60); Globulin 3.3 g/dL (1.3-3.2); Glucose 84 mg/dl (74-100); Potassium 4.4 mmoL/L (3.5-5.1); Sodium 138 mmol/L (136-145); Total Protein,Serum 8.0 g/dl (6.3-8.2)
== END 2025-05-26 23:59 | disposition home or self-care (01) ==
LOC: LAB.DROPOF 05-27 11:39
PROVIDERS: PCP Family Medicine; Visit Provider Family Medicine
DX: E78.2 Mixed hyperlipidemia (principal); I10 Essential (primary) hypertension
CPT/HCPCS: 80053; 85025